=== PATIENT | female | born 1940 | race Hispanic/Latino ===

== ENCOUNTER 2016-09-25 08:00 | Inpatient (IN) | payer MEDICARE ==
[2016-09-22 10:07] VITALS: BMI 33.3
[2016-09-25] MEDS ORDERED: Propofol 10 mg/ml Inj (20 ML) ONE (08:55)
[2016-09-25] MEDS ORDERED: Lidocaine Hydrochloride 5 ML INJ ONE (08:55)
[2016-09-25] MEDS ORDERED: Rocuronium 10 mg/ml (5 ml) ONE ×2 (08:55→12:39)
[2016-09-25] MEDS ORDERED: Sevoflurane - Inhalation Anesthetic Liq (250 ml) ONE (08:57)
[2016-09-25] MEDS ORDERED: Meropenem 500 mg Inj IVPB ONE (09:00)
[2016-09-25] MEDS ORDERED: Vancomycin 500 mg Inj ONE (09:00)
[2016-09-25] MEDS ORDERED: Thrombin Topical 5,000 IU Spray Kit ONE (09:15)
[2016-09-25] MEDS ORDERED: Absorbable Gelatin Sponge Size 100 ONE (09:15)
[2016-09-25] MEDS ORDERED: ePHEDrine 50 mg/ml Inj ONE (13:02)
[2016-09-25] MEDS ORDERED: HYDROmorphone 0.5 mg/0.5 ml ISec ONE (16:04)
[2016-09-26] MEDS ORDERED: Artificial Tears Opht Soln OD PRN (03:53)
[2016-09-26] MEDS ORDERED: Albuterol-Ipratrop 3 mg / 0.5 (3 ml) UD INH PRN (03:53)
[2016-09-26] MEDS ORDERED: ACETAMINOPHEN 650 MG PO PRN (03:53)
[2016-09-26 07:45] LABS: ALB/GLOB RATIO 1.1 (1.0-2.1); BILIRUBIN,TOTAL 0.3 mg/dl (0.2-1.3); CALCIUM 9.2 mg/dL (8.4-10.2); POTASSIUM 4.2 MMOL/L (3.6-5.0); TOTAL PROTEIN 6.3 G/DL (6.3-8.2)
--- NOTE | 2016-09-26 08:30 | CP.PCM.PN ---
Subjective - Date & Time of Evaluation Date of Evaluation: 09/26/16 Time of Evaluation: 08:30 - Subjective Subjective: S- minimal popst op discomfort Objective - Vital Signs/Intake and Output Vital Signs (last 24 hours): Temp Pulse Resp BP Pulse Ox 99 F 92 H 17 119/64 95 09/26/16 07:46 09/26/16 07:46 09/26/16 07:46 09/26/16 07:46 09/26/16 07:46 - Medications Medications: Current Medications Acetaminophen (Tylenol 325mg Tab) 650 mg PO Q6 PRN PRN Reason: Fever >100.4 F Albuterol/Ipratropium (Duoneb 3 Mg/0.5 Mg (3 Ml) Ud) 3 ml INH RQ6 PRN PRN Reason: Shortness of Breath Amlodipine Besylate (Norvasc) 5 mg PO DAILY [facility] Artificial Tears (Artificial Tears) 2 drop OD Q2H PRN PRN Reason: Dry eyes Atorvastatin Calcium (Lipitor) 10 mg PO HS [facility] Clotrimazole (Lotrimin 1% Cream) 1 applic TOP BID [facility] Enoxaparin Sodium (Lovenox) 30 mg SC Q12 [facility] PRN Reason: Protocol Ferrous Sulfate (Feosol) 325 mg PO DAILY [facility] Meropenem 500 mg/ Sodium (Chloride) 100 mls @ 100 mls/hr IVPB Q12 [facility] Vancomycin HCl 500 mg/ Sodium (Chloride) 100 mls @ 100 mls/hr IVPB Q12 [facility] Lactulose (Enulose) 20 gm PO DAILY PRN PRN Reason: Constipation Oxycodone/Acetaminophen (Percocet 5/325 Mg Tab) 1 tab PO Q4 PRN PRN Reason: Pain, moderate (4-7) Stop: 09/29/16 03:54 Pantoprazole Sodium (Protonix Ec Tab) 40 mg PO DAILY [facility] Zolpidem Tartrate (Ambien) 5 mg PO HS PRN PRN Reason: Sleep - Labs Labs: 09/26/16 06:35 - Skin Additional comments: Objective R hip wound dressing intact stance/gait- defrred orthopedically stable Assessment and Plan - Assessment and Plan (Free Text) Assessment: A- s/p R THR P orthopedically stable physio- weigth bearing to tolerance with walker case discussed with DR Hall fromj ID point of view
--- NOTE | 2016-09-26 08:48 | RAD ---
PROCEDURE: Right Femur Radiographs. HISTORY: Postop. COMPARISON: 05/31/2014 right hip 08/08/2016 CT right lower extremity TECHNIQUE: AP and Lateral Radiographs of the right femur. Portable study 16:25. FINDINGS: FEMUR: Satisfactory postoperative status has a relates to revision of previous right SUSAN. SOFT TISSUES: Postop/surgical drains identified. OTHER FINDINGS: None. IMPRESSION: Satisfactory postoperative status.
[2016-09-26] MEDS ORDERED: FERROUS SULFATE PO SCH (09:00)
[2016-09-26] MEDS: Meropenem 500 MG in Sodium Chloride 0.9% 100 ML IVPB SCH ×2 (09:10→20:36)
[2016-09-26] MEDS: Pantoprazole 40 mg EC Tab PO SCH (09:11)
[2016-09-26] MEDS: Oxycodone/Acetaminophen 5/325 mg Tab PO PRN ×2 (09:15→18:17)
[2016-09-26 09:41] LABS: FLUID TYPE SYNOVIAL FLUID
[2016-09-26 10:08] LABS: SYNOVIAL FLUID TOTAL COUNT 100 (0-0)
[2016-09-26 10:15] LABS: BODY FLUID TYPE PERITONEAL/ASCITES
[2016-09-26 10:23] LABS: BF GROSS APPEARANCE BLOODY (CLEAR)
[2016-09-26 10:25] LABS: BODY FLUID TOTAL COUNT 100 (0-0)
--- NOTE | 2016-09-26 10:27 | CP.PCM.PN ---
Subjective - Date & Time of Evaluation Date of Evaluation: 09/26/16 Time of Evaluation: 10:30 - Subjective Subjective: Patient seen and examined bedside. Feeling well and in good spirits.pain is controleld with pain medication. Hemodynamically stable. Tmax 99.8 last 12 hours. No acute issues overnight Drain to right hip with minimal output Objective - Vital Signs/Intake and Output Vital Signs (last 24 hours): Temp Pulse Resp BP Pulse Ox 99 F 92 H 17 119/62 95 09/26/16 07:46 09/26/16 09:11 09/26/16 07:46 09/26/16 09:11 09/26/16 07:46 - Medications Medications: Current Medications Acetaminophen (Tylenol 325mg Tab) 650 mg PO Q6 PRN PRN Reason: Fever >100.4 F Albuterol/Ipratropium (Duoneb 3 Mg/0.5 Mg (3 Ml) Ud) 3 ml INH RQ6 PRN PRN Reason: Shortness of Breath Amlodipine Besylate (Norvasc) 5 mg PO DAILY [facility] Last Admin: 09/26/16 09:11 Dose: 5 mg Artificial Tears (Artificial Tears) 2 drop OD Q2H PRN PRN Reason: Dry eyes Atorvastatin Calcium (Lipitor) 10 mg PO HS [facility] Clotrimazole (Lotrimin 1% Cream) 1 applic TOP BID [facility] Last Admin: 09/26/16 09:09 Dose: 1 applic Enoxaparin Sodium (Lovenox) 30 mg SC Q12 [facility] PRN Reason: Protocol Ferrous Sulfate (Feosol) 325 mg PO DAILY [facility] Last Admin: 09/26/16 09:15 Dose: 325 mg Meropenem 500 mg/ Sodium (Chloride) 100 mls @ 100 mls/hr IVPB Q12 [facility] Last Admin: 09/26/16 09:10 Dose: 100 mls/hr Vancomycin HCl 500 mg/ Sodium (Chloride) 100 mls @ 100 mls/hr IVPB Q12 [facility] Lactulose (Enulose) 20 gm PO DAILY PRN PRN Reason: Constipation Oxycodone/Acetaminophen (Percocet 5/325 Mg Tab) 1 tab PO Q4 PRN PRN Reason: Pain, moderate (4-7) Stop: 09/29/16 03:54 Last Admin: 09/26/16 09:15 Dose: 1 tab Pantoprazole Sodium (Protonix Ec Tab) 40 mg PO DAILY [facility] Last Admin: 09/26/16 09:11 Dose: 40 mg Zolpidem Tartrate (Ambien) 5 mg PO HS PRN PRN Reason: Sleep - Labs Labs: 09/26/16 06:35 - Constitutional Appears: Well, Non-toxic, No Acute Distress - Head Exam Head Exam: ATRAUMATIC, NORMAL INSPECTION, NORMOCEPHALIC - Eye Exam Eye Exam: EOMI, Normal appearance, PERRL Pupil Exam: NORMAL ACCOMODATION - ENT Exam ENT Exam: Mucous Membranes Moist, Normal Exam - Neck Exam Neck Exam: Full ROM, Normal Inspection - Respiratory Exam Respiratory Exam: Clear to Ausculation Bilateral. absent: Rales, Rhonchi, Wheezes - Cardiovascular Exam Cardiovascular Exam: REGULAR RHYTHM, RRR, +S1, +S2. absent: JVD - GI/Abdominal Exam GI & Abdominal Exam: Soft, Normal Bowel Sounds. absent: Distended, Guarding, Tenderness, Rebound - Rectal Exam Rectal Exam: Deferred - Extremities Exam Extremities Exam: Normal Capillary Refill. absent: Calf Tenderness, Pedal Edema Additional comments: right hip Acquacell dressing dry and intact drain in place with minimal output pulse present - Back Exam Back Exam: NORMAL INSPECTION - Neurological Exam Neurological Exam: Alert, Awake, CN II-XII Intact, Oriented x3 - Psychiatric Exam Psychiatric exam: Normal Affect, Normal Mood - Skin Skin Exam: Dry, Intact, Normal Color, Warm Assessment and Plan - Assessment and Plan (Free Text) Assessment: 74 y/o female with PMHx significant for CAD/PAD, HTN, hyperlipidemia, diverticulosis, COPD, GERD, history of Right THR with dislocation and closed reduction was admitted via [facility] for revision of right hip. Today patient is POD # 1 and doing well. She denies any CP or SOB. Denies f/c/n/v/d.Pain is controlled. Drain to right hip with minimal output 1.Revision of THR post op day 1 Continue pain management Start PT with weight bearing as tolerated Dr. Alex following DVT prophylaxis with Lovenox 30 mg Sq q12 follow up cultures ID consulted. Continue Meropenem and Vancomycin Incentive spirometry 2. HTN (hypertension) BP controlled continue Norvasc 3. History of Anemia Continue Ferrous Sulfate 4. CAD (coronary artery disease) symptomatic Continue Lipitor plavix on hold for surgery cardiology clearance in chart 5. COPD (chronic obstructive pulmonary disease) no wheezing or SOB Duoneb q 4hrs prn for SOB 6.DVT prophylaxis continue Lovenox SCD
[2016-09-26 11:40] LABS: HEMATOCRIT 30.3 % (34.0-47.0); MEAN CELL VOLUME 87.7 fl (81.0-99.0); MEAN CORPUSCULAR HEMOGLOBIN 28.1 pg (27.0-31.0); WHITE BLOOD COUNT 13.4 K/uL (4.8-10.8)
[2016-09-26] MEDS: Enoxaparin 30 mg Syringe SC SCH ×2 (11:51→21:27)
[2016-09-26 18:49] LABS: PROCALCITONIN SERUM 0.09 NG/ML (0.19-0.49)
[2016-09-27 08:33] VITALS: RESP 20
[2016-09-27] MEDS: Enoxaparin 30 mg Syringe SC SCH (09:03)
[2016-09-27] MEDS: Meropenem 500 MG in Sodium Chloride 0.9% 100 ML IVPB SCH (09:04)
[2016-09-27] MEDS: Pantoprazole 40 mg EC Tab PO SCH (09:04)
--- NOTE | 2016-09-27 10:52 | CP.PCM.DIS ---
Provider - Provider Date of Admission: 09/26/16 03:01 Attending physician: Eulalio Beltrán MD Consults: Orthopedics Dr. Tolbert ID Dr. Koch Time Spent in preparation of Discharge (in minutes): 40 Hospital Course - Lab Results Lab Results: Micro Results 09/26/16 Unknown Hip - Right Gram Stain - Final 09/26/16 Unknown Hip - Right Gram Stain - Final 09/26/16 Unknown Hip - Right Gram Stain - Final 09/26/16 Unknown Hip - Right Gram Stain - Final 09/26/16 Unknown Hip - Right Gram Stain - Final 09/26/16 Unknown Hip - Right Gram Stain - Final 09/26/16 Unknown Hip - Right Gram Stain - Final 09/25/16 Unknown Other: Please Indicate Gram Stain - Final 09/26/16 Unknown Body Fluid - Hip-Right Gram Stain - Final Most Recent Lab Values WBC 13.4 K/uL (4.8-10.8) H 09/26/16 11:36 RBC 3.45 Mil/uL (3.80-5.20) L 09/26/16 11:36 Hgb 9.7 g/dL (12.0-16.0) L D 09/26/16 11:36 Hct 30.3 % (34.0-47.0) L 09/26/16 11:36 MCV 87.7 fl (81.0-99.0) 09/26/16 11:36 MCH 28.1 pg (27.0-31.0) 09/26/16 11:36 MCHC 32.0 g/dL (33.0-37.0) L 09/26/16 11:36 RDW 15.0 % (11.5-14.5) H 09/26/16 11:36 Plt Count 341 K/uL (130-400) D 09/26/16 11:36 ESR 73 mm/hr (0-30) H 09/26/16 06:35 Sodium 140 mmol/l (132-148) 09/26/16 06:35 Potassium 4.2 MMOL/L (3.6-5.0) 09/26/16 06:35 Chloride 105 mmol/L (98-107) 09/26/16 06:35 Carbon Dioxide 26 mmol/L (22-30) 09/26/16 06:35 Anion Gap 14 (10-20) 09/26/16 06:35 BUN 25 mg/dl (7-17) H 09/26/16 06:35 Creatinine 1.2 mg/dL (0.7-1.2) 09/26/16 06:35 Est GFR ( Amer) 53 09/26/16 06:35 Est GFR (Non-Af Amer) 44 09/26/16 06:35 Random Glucose 117 mg/dL (65-105) H 09/26/16 06:35 Calcium 9.2 mg/dL (8.4-10.2) 09/26/16 06:35 Total Bilirubin 0.3 mg/dl (0.2-1.3) 09/26/16 06:35 AST 30 U/L (14-36) 09/26/16 06:35 ALT 17 U/L (9-52) 09/26/16 06:35 Alkaline Phosphatase 64 U/L (38-126) 09/26/16 06:35 Total Protein 6.3 G/DL (6.3-8.2) 09/26/16 06:35 Albumin 3.2 g/dL (3.5-5.0) L D 09/26/16 06:35 Globulin 3.0 gm/dL (2.2-3.9) 09/26/16 06:35 Albumin/Globulin Ratio 1.1 (1.0-2.1) 09/26/16 06:35 Procalcitonin 0.09 NG/ML (0.19-0.49) L 09/26/16 06:35 Fluid Type Synovial fluid 09/26/16 Unknown Fluid Source Peritoneal/ascites 09/25/16 Unknown Fluid Appearance Bloody (CLEAR) 09/25/16 Unknown Fluid WBC 252.0 /mm3 (0.0-300.0) 09/25/16 Unknown Fluid RBC 78579.0 /mm3 (0.0-0.0) H 09/25/16 Unknown Fluid Tot Cell Count 100 (0-0) H 09/25/16 Unknown Fluid Neutrophils 80.0 % (0-0) H 09/25/16 Unknown Fluid Lymphocytes 9.0 % (0-0) H 09/25/16 Unknown Fld Monocyte/Macrophag 10 % (0-0) H 09/25/16 Unknown Synovial WBC 5544.0 /mm3 (0.0-150.0) H 09/26/16 Unknown Synovial RBC 24234.0 /mm3 (0.0-0.0) H 09/26/16 Unknown Synovial Neutrophils 93.0 % (0-0) H 09/26/16 Unknown Synovial Lymphocytes 5.0 % (0-0) H 09/26/16 Unknown Synov Monos/Macrophage 2 % (0-0) H 09/26/16 Unknown Vancomycin Trough 11.9 ug/mL (5.0-10.0) H 09/27/16 05:30 Teichoic Acid Antibody TNP 09/26/16 06:35 Anti-Staphylolysin O Negative (NEGATIVE) 09/26/16 06:35 Blood Type O NEGATIVE 09/25/16 09:10 Antibody Screen Positive 09/25/16 09:10 Antibody Identification Anti C Anti D Anti E Anti K 09/25/16 09:10 Antibody Identification Anti C Anti D Anti E Anti K 09/25/16 09:10 Antibody Identification Anti C Anti D Anti E Anti K 09/25/16 09:10 Antibody Identification Anti C Anti D Anti E Anti K 09/25/16 09:10 Antigen Identification C Antigen - NEGATIVE E Antigen - NEGATIVE K Antigen - NEGATIVE 09/25/16 09:10 Antigen Identification C Antigen - NEGATIVE E Antigen - NEGATIVE K Antigen - NEGATIVE 09/25/16 09:10 Antigen Identification C Antigen - NEGATIVE E Antigen - NEGATIVE K Antigen - NEGATIVE 09/25/16 09:10 Crossmatch See Detail 09/25/16 09:10 BBK History Checked Patient has bt 09/25/16 09:10 - Hospital Course Hospital Course: 76 year old female (PMHx CAD, PAD, HTN, HLD, Diverticulosis, COPD, GERD, Right THR) was admitted to [facility] on 09/26/16 for rivision of Right THR that occurred on 09/26/16. She is stable for discharge to TCU at [facility] for continued care and PT/OT NO Chest Pain, NO palpitations, NO SOB/Cough/Wheezing, NO dyshpagia/odynophagia , NO abdominal pain, NO n/v/d, (Has NOT moved bowels since her admission), NO burning/pain with urination, NO lightheadedness/dizziness, NO new changes in vision/eye pain, NO new changes in hearing/ear pain, NO paresthesias, NO edema Exam: HEENT: NCA, EOMI, PERRLA, NO pharyngeal erythema/exudate, NO thyromegaly, NO lymphadenopathy Cardio: NS1 and NS2, NO M/R/G Respiratory: CTA B/L NO R/R?W GI: BSx4, Soft, NT, NO HSM, NO guarding/rebound tenderness, ND Ext: NO Edema, Capillary Refill is 2 seconds, Pulses are strong and equal, NO loss of sensation, NO cyanosis Neuro: CN II throug XII are grossly intact Skin: Stage II Sacral Ulcer inferior aspect, Moles Right Lateral Nose and Left Lateral Neck Assessment and Plan: 1). Right THR Revision POD #2 PT weight bearing as tolerated Follow up finalization of Wound Cultures Lovenox 30 mg SQ Q12H Meropenem 500 mg IV Q12H Vancomycin 500 mg IV Q12H Oxycodone 5/325 mg 1 tab PO Q4H PRN Moderate Pain Orthopedics Dr. Tolbert Infectious Disease Dr. Koch 2). HTN Norvasc 5 mg PO 1x/day 3). HLD Lipitor 10 mg PO QHS 4). Sacral Stage II Ulcer/Moles on Right Lateral Nose and Left Lateral Neck Patient states that she the Sacral Ulcer is chronic and that she has been followed by wound care at this institution in the past: SHE DOES NOT WANT TREATMENT FOR THIS WHILE SHE IS HERE. She would like for us to leave this alone despite explaining to her my concerns for infection without treatment. She is also aware of the moles (in the aforementioned areas) and again does not want these addressed 5). Prophylacitic Measures Tylenol 650 mg PO Q6H PRN F>100.4 Duoneb Q6H PRN SOB Artificial Tears 2 drops Both Eyes Q12H Lotrimin 1 % Cream Topical 2x/day Protonix 40 mg PO 1x/day Ferrous Sulfate 325 mg PO 1x/day Lactulose 20 gm PO 1x/day Ambien 5 mg PO QHS Jet Garza D.O. Discharge Exam - Head Exam Head Exam: ATRAUMATIC, NORMAL INSPECTION, NORMOCEPHALIC Discharge Plan - Follow Up Plan Condition: GOOD Disposition: HOME/ ROUTINE Instructions: Hypertension (DC), Hypertension (GEN)
--- NOTE | 2016-09-27 10:57 | CP.PCM.PN ---
Subjective - Date & Time of Evaluation Date of Evaluation: 09/27/16 Time of Evaluation: 10:55 - Subjective Subjective: systemic- wnl Musculoskekletal stance/gait- defrred wound benign orthopedically stable Objective - Vital Signs/Intake and Output Vital Signs (last 24 hours): Temp Pulse Resp BP Pulse Ox 98.8 F 88 20 123/61 92 L 09/27/16 08:33 09/27/16 09:03 09/27/16 08:33 09/27/16 09:03 09/27/16 08:33 Intake and Output: 09/27/16 09/27/16 06:59 18:59 Output Total 60 Balance -60 - Medications Medications: Current Medications Acetaminophen (Tylenol 325mg Tab) 650 mg PO Q6 PRN PRN Reason: Fever >100.4 F Albuterol/Ipratropium (Duoneb 3 Mg/0.5 Mg (3 Ml) Ud) 3 ml INH RQ6 PRN PRN Reason: Shortness of Breath Amlodipine Besylate (Norvasc) 5 mg PO DAILY [facility] Last Admin: 09/27/16 09:03 Dose: 5 mg Artificial Tears (Artificial Tears) 2 drop OD Q2H PRN PRN Reason: Dry eyes Atorvastatin Calcium (Lipitor) 10 mg PO HS [facility] Last Admin: 09/26/16 21:33 Dose: 10 mg Clotrimazole (Lotrimin 1% Cream) 1 applic TOP BID [facility] Last Admin: 09/27/16 09:03 Dose: 1 applic Enoxaparin Sodium (Lovenox) 30 mg SC Q12 [facility] PRN Reason: Protocol Last Admin: 09/27/16 09:03 Dose: 30 mg Ferrous Sulfate (Feosol) 325 mg PO DAILY [facility] Last Admin: 09/27/16 09:02 Dose: 325 mg Meropenem 500 mg/ Sodium (Chloride) 100 mls @ 100 mls/hr IVPB Q12 [facility] Last Admin: 09/27/16 09:04 Dose: 100 mls/hr Vancomycin HCl 500 mg/ Sodium (Chloride) 100 mls @ 100 mls/hr IVPB Q12 [facility] Last Admin: 09/26/16 21:32 Dose: 100 mls/hr Lactulose (Enulose) 20 gm PO DAILY PRN PRN Reason: Constipation Oxycodone/Acetaminophen (Percocet 5/325 Mg Tab) 1 tab PO Q4 PRN PRN Reason: Pain, moderate (4-7) Stop: 09/29/16 03:54 Last Admin: 09/26/16 18:17 Dose: 1 tab Pantoprazole Sodium (Protonix Ec Tab) 40 mg PO DAILY [facility] Last Admin: 09/27/16 09:04 Dose: 40 mg Zolpidem Tartrate (Ambien) 5 mg PO HS PRN PRN Reason: Sleep - Labs Labs: 09/26/16 11:36 09/26/16 06:35 Assessment and Plan - Assessment and Plan (Free Text) Assessment: A- s/p Revision R THR orthopedically stablle for rehabb transer postn op Xrays reveal acceptable posotion of construct
[2016-09-27] MEDS: Oxycodone/Acetaminophen 5/325 mg Tab PO PRN (12:09)
[2016-09-27 16:03] VITALS: BP 127/62; PULSE 80; TEMP 98.3; O2SAT 94
--- NOTE | 2016-09-27 18:49 | CP.PCM.PN ---
Subjective - Date & Time of Evaluation Date of Evaluation: 09/27/16 Time of Evaluation: 16:45 - Subjective Subjective: ID NOTE PATIENT INITIALLY SEEN ON 09/25/16 WHEN COMPUTERS WERE DOWN STARTED ON VANCOMYCIN/ MEROPENEM WILL NEED 4 TO 6 WEEKS Objective - Vital Signs/Intake and Output Vital Signs (last 24 hours): Temp Pulse Resp BP Pulse Ox 98.3 F 80 20 127/62 94 L 09/27/16 16:02 09/27/16 16:02 09/27/16 16:02 09/27/16 16:02 09/27/16 16:02 Intake and Output: 09/27/16 09/27/16 06:59 18:59 Output Total 60 Balance -60 - Medications Medications: Current Medications Acetaminophen (Tylenol 325mg Tab) 650 mg PO Q6 PRN PRN Reason: Fever >100.4 F Albuterol/Ipratropium (Duoneb 3 Mg/0.5 Mg (3 Ml) Ud) 3 ml INH RQ6 PRN PRN Reason: Shortness of Breath Amlodipine Besylate (Norvasc) 5 mg PO DAILY [facility] Last Admin: 09/27/16 09:03 Dose: 5 mg Artificial Tears (Artificial Tears) 2 drop OD Q2H PRN PRN Reason: Dry eyes Atorvastatin Calcium (Lipitor) 10 mg PO HS [facility] Last Admin: 09/26/16 21:33 Dose: 10 mg Clotrimazole (Lotrimin 1% Cream) 1 applic TOP BID [facility] Last Admin: 09/27/16 16:43 Dose: 1 applic Enoxaparin Sodium (Lovenox) 30 mg SC Q12 [facility] PRN Reason: Protocol Last Admin: 09/27/16 09:03 Dose: 30 mg Ferrous Sulfate (Feosol) 325 mg PO DAILY [facility] Last Admin: 09/27/16 09:02 Dose: 325 mg Meropenem 500 mg/ Sodium (Chloride) 100 mls @ 100 mls/hr IVPB Q12 [facility] Last Admin: 09/27/16 09:04 Dose: 100 mls/hr Vancomycin HCl 500 mg/ Sodium (Chloride) 100 mls @ 100 mls/hr IVPB Q12 [facility] Last Admin: 09/27/16 11:34 Dose: 100 mls/hr Lactulose (Enulose) 20 gm PO DAILY PRN PRN Reason: Constipation Oxycodone/Acetaminophen (Percocet 5/325 Mg Tab) 1 tab PO Q4 PRN PRN Reason: Pain, moderate (4-7) Stop: 09/29/16 03:54 Last Admin: 09/27/16 12:09 Dose: 1 tab Pantoprazole Sodium (Protonix Ec Tab) 40 mg PO DAILY [facility] Last Admin: 09/27/16 09:04 Dose: 40 mg Zolpidem Tartrate (Ambien) 5 mg PO HS PRN PRN Reason: Sleep - Labs Labs: 09/26/16 11:36 09/26/16 06:35
--- NOTE | 2016-09-29 07:34 | OP ---
PROCEDURE DATE: 09/25/2016 PREOPERATIVE DIAGNOSIS: Painful right total hip replacement, rule out deep sepsis. POSTOPERATIVE DIAGNOSIS: Painful right total hip replacement, rule out deep sepsis. PROCEDURES: 1. Primary revision, total hip replacement arthroplasty, right, 2 components. 2. Removal of 2 total hip components. 3. Arthrotomy of the hip, extensive synovectomy. 4. Arthrotomy, right hip incision and drainage. SURGEON: Oscar Alex MD. LEAD COOK: Aylin Miranda, Certified Registered Sorting Machine Attendant. SECOND MAINTENANCE EQUIPMENT OPERATOR: Kenny Ceballos. COMPLICATIONS: No complications. DRAINS: One Hemovac drain. OPERATIVE INDICATION: The patient is a woman who underwent a primary total hip replacement in 2014 w ith recurrent dislocation. The patient underwent revision at that point in time for recurrent disloc ation with revision of acetabular component. The patient was doing well. The patient did not return for followup to my office, citing various reasons. The patient presented approximately 10 days ago with some drainage. The patient had been treated unsuccessfully at wound management by Dr. Alford,. The patient at that point in time was encouraged for emergency admission. She refuses. Pros, cons, risks and benefits for arthrotomy and revision are discussed at length. Authorization is obtained. The patient finally consents to coming into hospital. The patient presents with her son, Lance. Aft er having obtained informed consent, after thoroughly discussing the pros, cons, risks and benefits o f surgical approach, possibility of revision, possibility of component removal, possibility of introd uction of antibiotic impregnated spacer, possibility of introduction of antibiotic impregnated beads discussed. The off label use of the antibiotic impregnated beads is discussed at length with the pat iecoco and her son, Lance. Again, the possibility of mechanical failure, infection, thromboembolic dis ease, dislocation, nerve injury, secondary and even tertiary surgery is discussed. The possibility o f IV antibiotics is discussed. OPERATIVE PROCEDURE: The patient wishes the surgery be accomplished at this point in time after hernan tafoya for approximately 9 months. After having obtained informed consent in the above fashion, after having identified side, site and procedure and a critical pause/timeout, after the satisfactory induc tion of the anesthetic, the patient identified as Dottie Vasquez is placed in the direct lateral decubitus position with the right side up. The right lower extremity is prepped and free draped in t he usual fashion for lower extremity surgery. The initial incision is extended 2 fingerbreadths prox imally, 2 fingerbreadths distally. An ellipse of skin and subcutaneous tissue is excised. Superfici al cultures are obtained. Stat Gram stain, number of white cells per high power field, stat Gram sta in is sent. The skin incision is carried down through the skin and subcutaneous tissue. The Charnle y retractor is placed. The fascia wei is divided. The gluteus tatiana tendon insertion into the po sterior aspect of the femur is released. The gluteus tatiana decussation is released as well. At th is point in time, deep cultures are obtained. Stat Gram stain with number of white cells per high po wer field is obtained. Gram stain show sequentially no organisms and anywhere between 8 to 15 white cells per high power field. The arthrotomy is accomplished at this point in time with extensive syno vectomy and excision of scar. Arthrotomy, synovectomy, extensive excision of scar is accomplished. The posterior capsule is elevated with progressive internal rotation of the femur. This is tagged wi th stay suture. The gluteus tataina tendon insertion into the posterior aspect of the femur is relea sed. This having been accomplished, the hip is dislocated and again, further debridement of heteroto pic ossification is accomplished. Partial ostectomy of the heterotopic ossification is accomplished. The hip is dislocated and again, this fluid is cultured and stat Gram stain , number of white cells per high power field is sent. This having been accomplished, the tripolar MDM insert Prosper is rem kera. The head is removed. The stem is found to be exceptionally well fixed. There is no evidence of loosening of either the cup or the femoral stem. The tripolar construct had been employed. Using a bur, the margins of the acetabulum are identified and defined, taking great care not to injure cup . This having been accomplished, the metal insert of the acetabular shell is identified and is remov ed. The cold weld is removed using the curved osteotome. This having been accomplished, the inner m etal bearing is removed from the shell. The shell is found to be intact. There is no evidence of lo osening and on that basis, no real evidence of deep sepsis. The wound is thoroughly irrigated at thi s point in time with 3 L of antibiotic impregnated solution. This having been accomplished, the trip olar is converted to a total hip replacement. The tripolar components are removed. The femoral head is removed. Polyethylene and the inner shell of the acetabular component is removed. The complexit y of this exercise really deserves a complexity modifier. This having been accomplished, both in ter ms of the preoperative preparation, intraoperative difficulty in removing the inner bearing from the shell, the 10-degree hooded polyethylene insert for the 36 mm head is impacted in the appropriate ant eversion with the frod in the appropriate place. Trialing is accomplished with +10 femoral head 36 m m. The hip is reduced and found to be stable in all planes. This having been accomplished, the meta l +10, 36 mm head is impacted. The hip is reduced and found to be stable in all planes. The posteri or capsule is reintroduced through drill holes in the posterior aspect of the trochanter. The gut cleaner ior capsule is repaired using interrupted FiberWire suture. The wound again is thoroughly irrigated. Thorough debridement is accomplished. At this point in time, vancomycin impregnated calcium sulfat e pellets are placed in the superficial tissues because of the concern for superficial infection. Th e wound is thoroughly irrigated. Closure is in layers with #2 Quill followed by Vicryl, 0 Quill and samaria to skin over an 1/8 inch suction Hemovac drain. Braden Daigle compression dressing, Aquacel d ressing is applied. Postoperative x-rays reveal acceptable position of the construct. Oscar Alex MD cc: [id number] TT: 09/26/2016 09:56:39 tn
== END 2016-09-27 21:00 | DRG 468 ==
LOC: H.OPSURG 08:00 → H.MEDSURG1 09-26 01:48 → H.OPSURG 09-26 02:57 → H.MEDSURG1 09-26 03:01
PROC: 0SP90JZ Removal of Synthetic Substitute from Right Hip Joint, Open Approach (ICD-10-PCS; 2016-09-25)
PROC: 0SR902A Replacement of Right Hip Joint with Metal on Polyethylene Synthetic Substitute, Uncemented, Open Approach (ICD-10-PCS; principal; 2016-09-25 11:15)
DX: T84.84XA Pain due to internal orthopedic prosthetic devices, implants and grafts, initial encounter (principal); T84.51XA Infection and inflammatory reaction due to internal right hip prosthesis, initial encounter; B95.1 Streptococcus, group B, as the cause of diseases classified elsewhere; L89.152 Pressure ulcer of sacral region, stage 2; Z96.641 Presence of right artificial hip joint; J44.9 Chronic obstructive pulmonary disease, unspecified; D64.9 Anemia, unspecified; G89.28 Other chronic postprocedural pain; I10 Essential (primary) hypertension; I25.10 Atherosclerotic heart disease of native coronary artery without angina pectoris; E78.5 Hyperlipidemia, unspecified; K21.9 Gastro-esophageal reflux disease without esophagitis; I73.9 Peripheral vascular disease, unspecified; K57.90 Diverticulosis of intestine, part unspecified, without perforation or abscess without bleeding; Z88.3 Allergy status to other anti-infective agents; Z88.2 Allergy status to sulfonamides; Z87.891 Personal history of nicotine dependence

== ENCOUNTER 2016-09-27 21:30 | Inpatient (IN) | payer MEDICARE ==
[2016-09-27 23:18] VITALS: BMI 23.1
[2016-09-28] MEDS ORDERED: Artificial Tears Opht Soln OD PRN (00:01)
[2016-09-28] MEDS ORDERED: Albuterol-Ipratrop 3 mg / 0.5 (3 ml) UD INH PRN (00:01)
[2016-09-28] MEDS ORDERED: Oxycodone/Acetaminophen 5/325 mg Tab PO PRN (00:01)
[2016-09-28] MEDS ORDERED: Meropenem 500 MG in Sodium Chloride 0.9% 100 ML IVPB SCH (05:00)
--- NOTE | 2016-09-28 08:38 | CP.PCM.HP ---
History of Present Illness - History of Present Illness History of Present Illness: Hospitalist Admission H&P (Patient was seen and examined at 8:15 PM 09/28/16 712 -1) 76 year old female (PMHx CAD, PAD, HTN, HLD, Diverticulosis, COPD, GERD, Right THR) was admitted to [facility] on 09/26/16 for revision of Right THR that occurred on 09/26/16. She was discharged to TCU at [facility] for continued care and PT/OT on . NO Chest Pain, NO palpitations, NO SOB/Cough/Wheezing, NO dyshpagia/odynophagia , NO abdominal pain, NO n/v/d, (Has NOT moved bowels since her admission), NO burning/pain with urination, NO lightheadedness/dizziness, NO new changes in vision/eye pain, NO new changes in hearing/ear pain, NO paresthesias, NO edema PMHx: HF, HLD, HTN, COPD, Anemia, RA, Colitis, GERD, Bleeding Ulcer, Sacral Ulcer PSHx: Appendectomy, Cardiac Cath with Stent, Left Leg Stent, Right THR w/ revision ALL: Bacitracine,Neomycin, Polymyxin B, Sulfa Medications: Please see individual Assessment and Plan below Social Hx: (+) Tobacco, NO Alcohol, NO illicit drugs Exam: HEENT: NCA, EOMI, PERRLA, NO pharyngeal erythema/exudate, NO thyromegaly, NO cervical/supraclavicular/submandibular lymphadenopathy Cardio: NS1 and NS2, NO M/R/G Respiratory: CTA B/L NO R/R?W GI: BSx4, Soft, NT, NO HSM, NO guarding/rebound tenderness, ND Ext: NO Edema, Capillary Refill is 2 seconds, Pulses are strong and equal, NO loss of sensation, NO cyanosis Neuro: CN II throug XII are grossly intact Skin: Stage II Sacral Ulcer inferior aspect, Moles Right Lateral Nose and Left Lateral Neck Assessment and Plan: 1). Right THR Revision POD #3 PT weight bearing as tolerated Follow up finalization of Wound Cultures Lovenox 30 mg SC Q12H Meropenem 500 mg IV Q12H Vancomycin 500 mg IV Q12H Oxycodone 5/325 mg 1 tab PO Q4H PRN Moderate Pain Orthopedics Dr. Tolbert Infectious Disease Dr. Koch 2). HTN Norvasc 5 mg PO 1x/day 3). HLD Lipitor 10 mg PO QHS 4). Sacral Stage II Ulcer/Moles on Right Lateral Nose and Left Lateral Neck Patient states that the Sacral Ulcer is chronic and that she has been followed by wound care at this institution in the past: SHE DOES NOT WANT TREATMENT FOR THIS WHILE SHE IS HERE. She would like for us to leave this alone despite explaining to her my concerns for infection without treatment. She is also aware of the moles (in the aforementioned areas) and again does not want these addressed 5). Prophylacitic Measures Tylenol 650 mg PO Q6H PRN F>100.4 Duoneb Q6H PRN SOB Artificial Tears 2 drops Both Eyes Q12H Lotrimin 1 % Cream Topical 2x/day Protonix 40 mg PO 1x/day Lovenox 30 mg SC Q12H Ferrous Sulfate 325 mg PO 1x/day Lactulose 20 gm PO 1x/day Ambien 5 mg PO QHS Jet Garza D.O. Present on Admission - Present on Admission Any Indicators Present on Admission: Yes History of DVT/PE: No History of Uncontrolled Diabetes: No Urinary Catheter: No Decubitus Ulcer Present: Yes Review of Systems - Review of Systems Review of Systems: See Above Past Patient History - Infectious Disease Hx of Infectious Diseases: None - Tetanus Immunizations Tetanus Immunization: Unknown - Past Medical History & Family History Past Medical History?: Yes Pertinent Family History: See Above - Past Social History Smoking Status: Heavy Smoker > 10 Cigarettes Daily - CARDIAC Hx Cardiac Disorders: Yes Hx Hypercholesterolemia: Yes Hx Hypertension: Yes Hx Peripheral Vascular Disease: Yes Other/Comment: CAD - PULMONARY Hx Respiratory Disorders: Yes Hx Chronic Obstructive Pulmonary Disease (COPD): Yes - NEUROLOGICAL Hx Neurological Disorder: No - HEENT Hx HEENT Problems: No - RENAL Hx Chronic Kidney Disease: No - ENDOCRINE/METABOLIC Hx Endocrine Disorders: No - HEMATOLOGICAL/ONCOLOGICAL Hx Blood Disorders: Yes Hx Anemia: Yes Hx Blood Transfusions: Yes Hx Blood Transfusion Reaction: No - INTEGUMENTARY Hx Dermatological Problems: Yes - MUSCULOSKELETAL/RHEUMATOLOGICAL Hx Falls: Yes - GASTROINTESTINAL Hx Gastrointestinal Disorders: Yes Hx Gastroesophageal Reflux: Yes Other/Comment: HX OF G I BLEED - GENITOURINARY/GYNECOLOGICAL Hx Genitourinary Disorders: No - PSYCHIATRIC Hx Substance Use: No - SURGICAL HISTORY Hx Surgeries: Yes Hx Cardiac Catheterization: Yes Hx Coronary Stent: Yes (2013) Hx Joint Replacement: Yes (THR RIGHT 2014) Other/Comment: 09/25/16 i and d revision rthr. STOMACH SX - ANESTHESIA Hx Anesthesia: Yes Hx Anesthesia Reactions: No Hx Malignant Hyperthermia: No Meds Allergies/Adverse Reactions: Allergies Allergy/AdvReac Type Severity Reaction Status Date / Time bacitracin Allergy Unknown ANAPHYLAXIS Verified 07/04/16 15:15 neomycin Allergy Unknown ANAPHYLAXIS Verified 07/04/16 15:19 polymyxin B Allergy Unknown ANAPHYLAXIS Verified 07/04/16 15:21 Sulfa (Sulfonamide Allergy Unknown ANAPHYLAXIS Verified 07/04/16 15:20 Antibiotics) Physical Exam - Constitutional Additional comments: See Above Results - Vital Signs Recent Vital Signs: Last Vital Signs Temp 99.5 F 09/28/16 08:07 Pulse 83 09/28/16 08:07 Resp 20 09/28/16 08:07 BP 119/57 L 09/28/16 08:07 Pulse Ox 94 L 09/28/16 08:07 Assessment & Plan - Assessment and Plan (Free Text) Assessment: See Above Decision To Admit - Pt Status Changed To: Hospital Disposition Of: Inpatient - Admit Certification Admit to Inpatient:: After my assessment, the patient will require hospitalization for at least two midnights. This is because of the severity of symptoms shown, intensity of services needed, and/or the medical risk in this patient being treated as an outpatient. - . Bed Request Type: Transitional Care Unit Admitting Physician: Jet Garza
[2016-09-28] MEDS: Enoxaparin 30 mg Syringe SC SCH ×2 (09:05→21:38)
[2016-09-28] MEDS: Pantoprazole 40 mg EC Tab PO SCH (09:05)
--- NOTE | 2016-09-28 16:35 | CP.PCM.PN ---
Subjective - Date & Time of Evaluation Date of Evaluation: 09/28/16 Time of Evaluation: 16:25 - Subjective Subjective: ID NOTE PATIENT HAS BEEN PLACED ON MEROPENEM/VANCOMYCIN ON 2 OTHER TIMES IN THIS HOSPITAL STAY .THURSDAY(09/25/16) AND YESDAY(09/27/16) HAVE ONCE AGAIN ORDERED NEEDS 6 WEEKS OF IV ANTIBIOTIC RX PER PREVIOUS NOTES Objective - Vital Signs/Intake and Output Vital Signs (last 24 hours): Temp Pulse Resp BP Pulse Ox 99.5 F 83 20 119/57 L 94 L 09/28/16 08:07 09/28/16 09:05 09/28/16 08:07 09/28/16 09:05 09/28/16 08:07 - Medications Medications: Current Medications Acetaminophen (Tylenol 325mg Tab) 650 mg PO Q6 PRN PRN Reason: Fever >100.4 F Albuterol/Ipratropium (Duoneb 3 Mg/0.5 Mg (3 Ml) Ud) 3 ml INH RQ6 PRN PRN Reason: Shortness of Breath Amlodipine Besylate (Norvasc) 5 mg PO DAILY [facility] Last Admin: 09/28/16 09:05 Dose: 5 mg Artificial Tears (Artificial Tears) 2 drop OD Q2H PRN PRN Reason: Dry eyes Atorvastatin Calcium (Lipitor) 10 mg PO HS [facility] Clotrimazole (Lotrimin 1% Cream) 1 applic TOP BID [facility] Last Admin: 09/28/16 09:06 Dose: 1 unit Enoxaparin Sodium (Lovenox) 30 mg SC Q12 [facility] PRN Reason: Protocol Last Admin: 09/28/16 09:05 Dose: 30 mg Ferrous Sulfate (Feosol) 325 mg PO DAILY [facility] Last Admin: 09/28/16 09:12 Dose: 325 mg Meropenem 500 mg/ Sodium (Chloride) 100 mls @ 100 mls/hr IVPB Q12@0500,1700 [facility] Last Admin: 09/28/16 05:37 Dose: 100 mls/hr Vancomycin HCl 500 mg/ Sodium (Chloride) 100 mls @ 100 mls/hr IVPB Q12@0500, 1700 [facility] Last Admin: 09/28/16 06:46 Dose: 100 mls/hr Meropenem 500 mg/ Sodium (Chloride) 100 mls @ 100 mls/hr IVPB Q12 [facility] Lactulose (Enulose) 20 gm PO DAILY PRN PRN Reason: Constipation Oxycodone/Acetaminophen (Percocet 5/325 Mg Tab) 1 tab PO Q4 PRN PRN Reason: Pain, moderate (4-7) Stop: 10/01/16 00:02 Pantoprazole Sodium (Protonix Ec Tab) 40 mg PO DAILY [facility] Last Admin: 09/28/16 09:05 Dose: 40 mg Zolpidem Tartrate (Ambien) 5 mg PO HS PRN PRN Reason: Sleep
[2016-09-28] MEDS: Meropenem 500 MG in Sodium Chloride 0.9% 100 ML IVPB SCH (18:00)
[2016-09-29] MEDS: Meropenem 500 MG in Sodium Chloride 0.9% 100 ML IVPB SCH ×2 (05:09→17:15)
[2016-09-29 07:18] LABS: ALB/GLOB RATIO 0.9 (1.0-2.1); BILIRUBIN,TOTAL 0.4 mg/dl (0.2-1.3); CALCIUM 9.5 mg/dL (8.4-10.2); POTASSIUM 3.6 MMOL/L (3.6-5.0); TOTAL PROTEIN 6.7 G/DL (6.3-8.2)
[2016-09-29] MEDS: Pantoprazole 40 mg EC Tab PO SCH (09:29)
[2016-09-29] MEDS: Enoxaparin 30 mg Syringe SC SCH ×2 (09:29→21:34)
[2016-09-29 10:54] LABS: BASO % 0.2 % (0.0-2.0); EOS # 0.6 K/uL (0.0-0.7); EOS % 4.4 % (0.0-4.0); HEMATOCRIT 29.1 % (34.0-47.0); LYMPH # 1.3 K/uL (1.0-4.3); LYMPH % 9.2 % (20.0-40.0); MEAN CELL VOLUME 87.1 fl (81.0-99.0); MEAN CORPUSCULAR HEMOGLOBIN 28.7 pg (27.0-31.0); MEAN PLATELET VOLUME 8.6 fl (7.2-11.7); MONO # 2.1 K/uL (0.0-0.8); MONO % 14.9 % (0.0-10.0); NEUT % 71.3 % (50.0-75.0); NRBC % 0.1 % (0.0-0.0); PLATELET COUNT 371 K/uL (130-400); RED CELL DISTRIBUTION WIDTH 15.1 % (11.5-14.5); WHITE BLOOD COUNT 14.1 K/uL (4.8-10.8)
[2016-09-29 12:22] LABS: EOSINOPHIL 2 % (0-7); NEUTROPHIL 75 % (42-75); REACTIVE LYMPHOCYTES 1 % (0-0); TOTAL CELLS COUNTED 100
[2016-09-29 12:25] LABS: PLATELET CLUMPS PRESENT
[2016-09-30] MEDS: Meropenem 500 MG in Sodium Chloride 0.9% 100 ML IVPB SCH ×2 (04:53→16:22)
[2016-09-30] MEDS: Enoxaparin 30 mg Syringe SC SCH ×2 (09:23→21:28)
[2016-09-30] MEDS: Pantoprazole 40 mg EC Tab PO SCH (09:24)
--- NOTE | 2016-09-30 12:58 | CP.PCM.CON ---
History of Present Illness - History of Present Illness History of Present Illness: patient is a 76 year old female with right hip replacement now for Pt, Ot rec therapy with history of CAD, HTN,RA Review of Systems - Constitutional Constitutional: Weakness - Musculoskeletal Musculoskeletal: Abnormal Gait, Muscle Weakness Past Patient History - Infectious Disease Hx of Infectious Diseases: None - Tetanus Immunizations Tetanus Immunization: Unknown - Past Medical History & Family History Past Medical History?: Yes - Past Social History Smoking Status: Heavy Smoker > 10 Cigarettes Daily - CARDIAC Hx Cardiac Disorders: Yes Hx Hypercholesterolemia: Yes Hx Hypertension: Yes Hx Peripheral Vascular Disease: Yes Other/Comment: CAD - PULMONARY Hx Respiratory Disorders: Yes Hx Chronic Obstructive Pulmonary Disease (COPD): Yes - NEUROLOGICAL Hx Neurological Disorder: No - HEENT Hx HEENT Problems: No - RENAL Hx Chronic Kidney Disease: No - ENDOCRINE/METABOLIC Hx Endocrine Disorders: No - HEMATOLOGICAL/ONCOLOGICAL Hx Blood Disorders: Yes Hx Anemia: Yes Hx Blood Transfusions: Yes Hx Blood Transfusion Reaction: No - INTEGUMENTARY Hx Dermatological Problems: Yes - MUSCULOSKELETAL/RHEUMATOLOGICAL Hx Falls: Yes - GASTROINTESTINAL Hx Gastrointestinal Disorders: Yes Hx Gastroesophageal Reflux: Yes Other/Comment: HX OF G I BLEED - GENITOURINARY/GYNECOLOGICAL Hx Genitourinary Disorders: No - PSYCHIATRIC Hx Substance Use: No - SURGICAL HISTORY Hx Surgeries: Yes Hx Cardiac Catheterization: Yes Hx Coronary Stent: Yes (2013) Hx Joint Replacement: Yes (THR RIGHT 2014) Other/Comment: 09/25/16 i and d revision rthr. STOMACH SX - ANESTHESIA Hx Anesthesia: Yes Hx Anesthesia Reactions: No Hx Malignant Hyperthermia: No Meds Allergies/Adverse Reactions: Allergies Allergy/AdvReac Type Severity Reaction Status Date / Time bacitracin Allergy Unknown ANAPHYLAXIS Verified 07/04/16 15:15 neomycin Allergy Unknown ANAPHYLAXIS Verified 07/04/16 15:19 polymyxin B Allergy Unknown ANAPHYLAXIS Verified 07/04/16 15:21 Sulfa (Sulfonamide Allergy Unknown ANAPHYLAXIS Verified 07/04/16 15:20 Antibiotics) - Medications Medications: Current Medications Acetaminophen (Tylenol 325mg Tab) 650 mg PO Q6 PRN PRN Reason: Fever >100.4 F Albuterol/Ipratropium (Duoneb 3 Mg/0.5 Mg (3 Ml) Ud) 3 ml INH RQ6 PRN PRN Reason: Shortness of Breath Amlodipine Besylate (Norvasc) 5 mg PO DAILY [facility] Last Admin: 09/30/16 09:24 Dose: 5 mg Artificial Tears (Artificial Tears) 2 drop OD Q2H PRN PRN Reason: Dry eyes Atorvastatin Calcium (Lipitor) 10 mg PO HS [facility] Last Admin: 09/29/16 21:34 Dose: Not Given Clotrimazole (Lotrimin 1% Cream) 1 applic TOP BID [facility] Last Admin: 09/30/16 12:48 Dose: 1 unit Enoxaparin Sodium (Lovenox) 30 mg SC Q12 [facility] PRN Reason: Protocol Last Admin: 09/30/16 09:23 Dose: 30 mg Ferrous Sulfate (Feosol) 325 mg PO DAILY [facility] Last Admin: 09/30/16 09:22 Dose: 325 mg Vancomycin HCl 500 mg/ Sodium (Chloride) 100 mls @ 100 mls/hr IVPB Q12@0500, 1700 [facility] Last Admin: 09/30/16 05:55 Dose: 100 mls/hr Meropenem 500 mg/ Sodium (Chloride) 100 mls @ 100 mls/hr IVPB Q12@0500,1700 [facility] Last Admin: 09/30/16 04:53 Dose: 100 mls/hr Lactulose (Enulose) 20 gm PO DAILY PRN PRN Reason: Constipation Oxycodone/Acetaminophen (Percocet 5/325 Mg Tab) 1 tab PO Q4 PRN PRN Reason: Pain, moderate (4-7) Stop: 10/01/16 00:02 Last Admin: 09/29/16 04:09 Dose: 1 tab Pantoprazole Sodium (Protonix Ec Tab) 40 mg PO DAILY [facility] Last Admin: 09/30/16 09:24 Dose: 40 mg Zolpidem Tartrate (Ambien) 5 mg PO HS PRN PRN Reason: Sleep Physical Exam - Head Exam Head Exam: ATRAUMATIC, NORMAL INSPECTION, NORMOCEPHALIC - Eye Exam Eye Exam: EOMI, Normal appearance, PERRL Pupil Exam: NORMAL ACCOMODATION - ENT Exam ENT Exam: Mucous Membranes Moist, Normal Exam - Respiratory Exam Respiratory Exam: NORMAL BREATHING PATTERN - Cardiovascular Exam Cardiovascular Exam: Clicks - GI/Abdominal Exam GI & Abdominal Exam: Normal Bowel Sounds - Rectal Exam Rectal Exam: NORMAL INSPECTION - Exam External exam: NORMAL EXTERNAL EXAM - Extremities Exam Extremities exam: Positive for: normal inspection - Back Exam Back exam: NORMAL INSPECTION - Neurological Exam Neurological exam: Alert, CN II-XII Intact - Psychiatric Exam Psychiatric exam: Normal Affect, Normal Mood - Skin Skin Exam: Dry, Intact Results - Vital Signs Recent Vital Signs: Last Vital Signs Temp 98.1 F 09/30/16 08:24 Pulse 82 09/30/16 09:24 Resp 20 09/30/16 08:24 BP 128/59 L 09/30/16 09:24 Pulse Ox 95 09/30/16 08:24 - Labs Result Diagrams: 09/29/16 06:53 09/29/16 06:53 Assessment & Plan (1) Adjustment disorder Status: Acute Priority: High (2) Anemia Status: Acute (3) DVT prophylaxis Status: Acute (4) Hip dislocation, right Status: Acute Priority: High (5) Hip injury Status: Acute (6) S/P hip replacement Assessment and Plan: plan for physical, occupational, rec therapy for rom , strenghtening transfers and gait training Status: Acute Priority: High (7) Sty, external Status: Acute Priority: Medium (8) Tachycardia Status: Acute
--- NOTE | 2016-09-30 16:48 | CP.PCM.PN ---
Subjective - Date & Time of Evaluation Date of Evaluation: 09/30/16 Time of Evaluation: 16:44 - Subjective Subjective: ID NOTE PATIENT COMPLAINING OF PAIN TOLERATING REHAB SO FAR AFEBRILE GFR:44, CREATININE:1.2 CBC:14.1,VANCOMYCIN TROUGH:11.2 CULTURE:GROUP B STREP HAVE ASKED MICRO TO CHECK AGAINST CEPHALOSPORINS AND CARBAPENEMS FOR PRESENT CONTINUE VANCOMYCIN AND MEROPENEM MAY CONSIDER CHANGE PENDING MICRO RESULTS Objective - Vital Signs/Intake and Output Vital Signs (last 24 hours): Temp Pulse Resp BP Pulse Ox 98.1 F 82 20 128/59 L 95 09/30/16 08:24 09/30/16 09:24 09/30/16 08:24 09/30/16 09:24 09/30/16 08:24 Intake and Output: 09/30/16 09/30/16 06:59 18:59 Intake Total 200 Balance 200 - Medications Medications: Current Medications Acetaminophen (Tylenol 325mg Tab) 650 mg PO Q6 PRN PRN Reason: Fever >100.4 F Albuterol/Ipratropium (Duoneb 3 Mg/0.5 Mg (3 Ml) Ud) 3 ml INH RQ6 PRN PRN Reason: Shortness of Breath Amlodipine Besylate (Norvasc) 5 mg PO DAILY [facility] Last Admin: 09/30/16 09:24 Dose: 5 mg Artificial Tears (Artificial Tears) 2 drop OD Q2H PRN PRN Reason: Dry eyes Atorvastatin Calcium (Lipitor) 10 mg PO HS [facility] Last Admin: 09/29/16 21:34 Dose: Not Given Clotrimazole (Lotrimin 1% Cream) 1 applic TOP BID [facility] Last Admin: 09/30/16 16:22 Dose: 1 unit Enoxaparin Sodium (Lovenox) 30 mg SC Q12 [facility] PRN Reason: Protocol Last Admin: 09/30/16 09:23 Dose: 30 mg Ferrous Sulfate (Feosol) 325 mg PO DAILY [facility] Last Admin: 09/30/16 09:22 Dose: 325 mg Vancomycin HCl 500 mg/ Sodium (Chloride) 100 mls @ 100 mls/hr IVPB Q12@0500, 1700 [facility] Last Admin: 09/30/16 16:23 Dose: 100 mls/hr Meropenem 500 mg/ Sodium (Chloride) 100 mls @ 100 mls/hr IVPB Q12@0500,1700 [facility] Last Admin: 09/30/16 16:22 Dose: 100 mls/hr Lactulose (Enulose) 20 gm PO DAILY PRN PRN Reason: Constipation Oxycodone/Acetaminophen (Percocet 5/325 Mg Tab) 1 tab PO Q4 PRN PRN Reason: Pain, moderate (4-7) Stop: 10/01/16 00:02 Last Admin: 09/29/16 04:09 Dose: 1 tab Pantoprazole Sodium (Protonix Ec Tab) 40 mg PO DAILY [facility] Last Admin: 09/30/16 09:24 Dose: 40 mg Zolpidem Tartrate (Ambien) 5 mg PO HS PRN PRN Reason: Sleep - Labs Labs: 09/29/16 06:53 09/29/16 06:53
--- NOTE | 2016-09-30 16:52 | CP.PCM.PN ---
Subjective - Date & Time of Evaluation Date of Evaluation: 09/30/16 Time of Evaluation: 16:30 - Subjective Subjective: Pt seen and examined. Denied any complaint but when inquired about her BM, she claimed she has not had BM for a week. Objective - Vital Signs/Intake and Output Vital Signs (last 24 hours): Temp Pulse Resp BP Pulse Ox 98.1 F 82 20 128/59 L 95 09/30/16 08:24 09/30/16 09:24 09/30/16 08:24 09/30/16 09:24 09/30/16 08:24 Intake and Output: 09/30/16 09/30/16 06:59 18:59 Intake Total 200 Balance 200 - Medications Medications: Current Medications Acetaminophen (Tylenol 325mg Tab) 650 mg PO Q6 PRN PRN Reason: Fever >100.4 F Albuterol/Ipratropium (Duoneb 3 Mg/0.5 Mg (3 Ml) Ud) 3 ml INH RQ6 PRN PRN Reason: Shortness of Breath Amlodipine Besylate (Norvasc) 5 mg PO DAILY [facility] Last Admin: 09/30/16 09:24 Dose: 5 mg Artificial Tears (Artificial Tears) 2 drop OD Q2H PRN PRN Reason: Dry eyes Atorvastatin Calcium (Lipitor) 10 mg PO HS [facility] Last Admin: 09/29/16 21:34 Dose: Not Given Clotrimazole (Lotrimin 1% Cream) 1 applic TOP BID [facility] Last Admin: 09/30/16 16:22 Dose: 1 unit Enoxaparin Sodium (Lovenox) 30 mg SC Q12 [facility] PRN Reason: Protocol Last Admin: 09/30/16 09:23 Dose: 30 mg Ferrous Sulfate (Feosol) 325 mg PO DAILY [facility] Last Admin: 09/30/16 09:22 Dose: 325 mg Vancomycin HCl 500 mg/ Sodium (Chloride) 100 mls @ 100 mls/hr IVPB Q12@0500, 1700 [facility] Last Admin: 09/30/16 16:23 Dose: 100 mls/hr Meropenem 500 mg/ Sodium (Chloride) 100 mls @ 100 mls/hr IVPB Q12@0500,1700 [facility] Last Admin: 09/30/16 16:22 Dose: 100 mls/hr Lactulose (Enulose) 20 gm PO DAILY PRN PRN Reason: Constipation Lactulose (Enulose) 20 gm PO STAT [facility] Stop: 09/30/16 16:49 Oxycodone/Acetaminophen (Percocet 5/325 Mg Tab) 1 tab PO Q4 PRN PRN Reason: Pain, moderate (4-7) Stop: 10/01/16 00:02 Last Admin: 09/29/16 04:09 Dose: 1 tab Pantoprazole Sodium (Protonix Ec Tab) 40 mg PO DAILY [facility] Last Admin: 09/30/16 09:24 Dose: 40 mg Zolpidem Tartrate (Ambien) 5 mg PO HS PRN PRN Reason: Sleep - Labs Labs: 09/29/16 06:53 09/29/16 06:53 - Constitutional Appears: No Acute Distress - Head Exam Head Exam: ATRAUMATIC - Eye Exam Eye Exam: absent: Scleral icterus - ENT Exam ENT Exam: Mucous Membranes Moist - Neck Exam Neck Exam: absent: Meningismus - Respiratory Exam Respiratory Exam: absent: Rhonchi, Wheezes - Cardiovascular Exam Cardiovascular Exam: REGULAR RHYTHM, +S1, +S2 - GI/Abdominal Exam GI & Abdominal Exam: Soft. absent: Tenderness - Rectal Exam Rectal Exam: Deferred - Extremities Exam Extremities Exam: absent: Tenderness - Neurological Exam Neurological Exam: Alert, Oriented x3 - Psychiatric Exam Psychiatric exam: Normal Affect - Skin Skin Exam: Dry, Intact Assessment and Plan - Assessment and Plan (Free Text) Assessment: 74 yo female with PMHx significant for CAD/PAD, HTN, hyperlipidemia, diverticulosis, COPD, GERD, history of Right THR with dislocation and closed reduction was admitted via [facility] for revision of right hip. 1.Revision of THR post op day 4 Continue Meropenem and Vancomycin Incentive spirometry 2. HTN (hypertension) BP controlled continue Norvasc 3. History of Anemia Continue Ferrous Sulfate 4. CAD (coronary artery disease) asymptomatic Continue Lipitor 5. COPD (chronic obstructive pulmonary disease) asymptomatic Duoneb q 4hrs prn for SOB 6.DVT prophylaxis continue Lovenox [facility]
[2016-10-01] MEDS: Meropenem 500 MG in Sodium Chloride 0.9% 100 ML IVPB SCH ×2 (06:02→16:26)
[2016-10-01 06:41] LABS: BASO # 0.1 K/uL (0.0-0.2); BASO % 0.6 % (0.0-2.0); EOS # 0.6 K/uL (0.0-0.7); EOS % 5.2 % (0.0-4.0); HEMATOCRIT 27.8 % (34.0-47.0); LYMPH # 1.7 K/uL (1.0-4.3); LYMPH % 15.5 % (20.0-40.0); MEAN CELL VOLUME 87.5 fl (81.0-99.0); MEAN PLATELET VOLUME 7.8 fl (7.2-11.7); MONO % 17.9 % (0.0-10.0); NEUT # 6.8 K/uL (1.8-7.0); NEUT % 60.8 % (50.0-75.0); RED CELL DISTRIBUTION WIDTH 15.1 % (11.5-14.5); WHITE BLOOD COUNT 11.2 K/uL (4.8-10.8)
[2016-10-01 06:57] LABS: CALCIUM 9.7 mg/dL (8.4-10.2); POTASSIUM 3.8 MMOL/L (3.6-5.0)
[2016-10-01] MEDS: Pantoprazole 40 mg EC Tab PO SCH (08:39)
[2016-10-01] MEDS: Enoxaparin 30 mg Syringe SC SCH (08:40)
--- NOTE | 2016-10-01 11:37 | CP.PCM.PN ---
Subjective - Date & Time of Evaluation Date of Evaluation: 10/01/16 Time of Evaluation: 11:20 - Subjective Subjective: ID NOTE PATIENT'S VANCOMYCIN TROUGH WAS 23.2 HAVE STOPPED VANCOMYCIN,RANDOM VANCOMYCIN LEVEL ORDERED RENAL FUNCTION SO FAR IS SAME HAVE ASKED MICROBIOLOGY TO DO MORE COMPLETE SENSITIVITY TESTING Objective - Vital Signs/Intake and Output Vital Signs (last 24 hours): Temp Pulse Resp BP Pulse Ox 98.1 F 67 20 107/54 L 100 10/01/16 10:00 10/01/16 10:00 10/01/16 10:00 10/01/16 10:00 10/01/16 10:00 - Medications Medications: Current Medications Acetaminophen (Tylenol 325mg Tab) 650 mg PO Q6 PRN PRN Reason: Fever >100.4 F Albuterol/Ipratropium (Duoneb 3 Mg/0.5 Mg (3 Ml) Ud) 3 ml INH RQ6 PRN PRN Reason: Shortness of Breath Amlodipine Besylate (Norvasc) 5 mg PO DAILY [facility] Last Admin: 10/01/16 08:40 Dose: 5 mg Artificial Tears (Artificial Tears) 2 drop OD Q2H PRN PRN Reason: Dry eyes Atorvastatin Calcium (Lipitor) 10 mg PO HS [facility] Last Admin: 09/30/16 21:28 Dose: 10 mg Clotrimazole (Lotrimin 1% Cream) 1 applic TOP BID [facility] Last Admin: 10/01/16 08:40 Dose: 1 unit Ferrous Sulfate (Feosol) 325 mg PO DAILY [facility] Last Admin: 10/01/16 08:40 Dose: 325 mg Meropenem 500 mg/ Sodium (Chloride) 100 mls @ 100 mls/hr IVPB Q12@0500,1700 [facility] Last Admin: 10/01/16 06:02 Dose: 100 mls/hr Lactulose (Enulose) 20 gm PO DAILY PRN PRN Reason: Constipation Pantoprazole Sodium (Protonix Ec Tab) 40 mg PO DAILY [facility] Last Admin: 10/01/16 08:39 Dose: 40 mg - Labs Labs: 10/01/16 06:27 10/01/16 06:27
--- NOTE | 2016-10-01 13:04 | CP.PCM.PN ---
Subjective - Date & Time of Evaluation Date of Evaluation: 10/01/16 Time of Evaluation: 08:00 - Subjective Subjective: no acute of complaints of pain Objective - Vital Signs/Intake and Output Vital Signs (last 24 hours): Temp Pulse Resp BP Pulse Ox 98.1 F 67 20 107/54 L 100 10/01/16 10:00 10/01/16 10:00 10/01/16 10:00 10/01/16 10:00 10/01/16 10:00 - Medications Medications: Current Medications Acetaminophen (Tylenol 325mg Tab) 650 mg PO Q6 PRN PRN Reason: Fever >100.4 F Albuterol/Ipratropium (Duoneb 3 Mg/0.5 Mg (3 Ml) Ud) 3 ml INH RQ6 PRN PRN Reason: Shortness of Breath Amlodipine Besylate (Norvasc) 5 mg PO DAILY [facility] Last Admin: 10/01/16 08:40 Dose: 5 mg Artificial Tears (Artificial Tears) 2 drop OD Q2H PRN PRN Reason: Dry eyes Atorvastatin Calcium (Lipitor) 10 mg PO HS [facility] Last Admin: 09/30/16 21:28 Dose: 10 mg Clotrimazole (Lotrimin 1% Cream) 1 applic TOP BID [facility] Last Admin: 10/01/16 08:40 Dose: 1 unit Ferrous Sulfate (Feosol) 325 mg PO DAILY [facility] Last Admin: 10/01/16 08:40 Dose: 325 mg Meropenem 500 mg/ Sodium (Chloride) 100 mls @ 100 mls/hr IVPB Q12@0500,1700 [facility] Last Admin: 10/01/16 06:02 Dose: 100 mls/hr Lactulose (Enulose) 20 gm PO DAILY PRN PRN Reason: Constipation Pantoprazole Sodium (Protonix Ec Tab) 40 mg PO DAILY [facility] Last Admin: 10/01/16 08:39 Dose: 40 mg - Labs Labs: 10/01/16 06:27 10/01/16 06:27 - Head Exam Head Exam: ATRAUMATIC, NORMAL INSPECTION, NORMOCEPHALIC - Eye Exam Eye Exam: EOMI, Normal appearance, PERRL Pupil Exam: NORMAL ACCOMODATION - ENT Exam ENT Exam: Mucous Membranes Moist, Normal Exam - Respiratory Exam Respiratory Exam: NORMAL BREATHING PATTERN - Cardiovascular Exam Cardiovascular Exam: REGULAR RHYTHM - GI/Abdominal Exam GI & Abdominal Exam: Soft - Rectal Exam Rectal Exam: NORMAL INSPECTION - Exam External exam: NORMAL EXTERNAL EXAM - Extremities Exam Extremities Exam: Normal Capillary Refill, Normal Inspection - Back Exam Back Exam: NORMAL INSPECTION - Neurological Exam Neurological Exam: Alert, Awake Neuro motor strength exam: Left Upper Extremity: 3, Right Upper Extremity: 3, Left Lower Extremity: 3, Right Lower Extremity: 3 - Psychiatric Exam Psychiatric exam: Normal Affect, Normal Mood - Skin Skin Exam: Dry, Intact Assessment and Plan (1) Adjustment disorder Status: Acute (2) Anemia Status: Acute (3) DVT prophylaxis Status: Acute (4) Hip dislocation, right Assessment & Plan: plan for Ot and Pt discussed Dc planning no equipment needed Status: Acute (5) Hip injury Status: Acute (6) S/P hip replacement Status: Acute (7) Sty, external Status: Acute (8) Tachycardia Status: Acute
[2016-10-01] MEDS: Oxycodone/Acetaminophen 5/325 mg Tab PO PRN (23:35)
[2016-10-02] MEDS: Meropenem 500 MG in Sodium Chloride 0.9% 100 ML IVPB SCH ×2 (05:32→16:37)
[2016-10-02] MEDS: Enoxaparin 30 mg Syringe SC SCH ×2 (08:36→21:47)
[2016-10-02] MEDS: Pantoprazole 40 mg EC Tab PO SCH (08:36)
[2016-10-02] MEDS: Oxycodone/Acetaminophen 5/325 mg Tab PO PRN (09:06)
--- NOTE | 2016-10-02 19:28 | CP.PCM.PN ---
Subjective - Date & Time of Evaluation Date of Evaluation: 10/02/16 Time of Evaluation: 19:23 - Subjective Subjective: ID NOTE MICROBIOLOGY HAS SHOWED SENSITIVITIES TO ROCEPHEN FOR STREP AAND WILL SWITCH AND D/C MEROPENEM ROCEPHEN 2 GM IVPB Q24H WOULD CONTINUE ZYVOX 600MG PO BID TO COVER POSSIBILITY OF STAPH s HAVING NEPHROTOXICITY Objective - Vital Signs/Intake and Output Vital Signs (last 24 hours): Temp Pulse Resp BP Pulse Ox 97.7 F 67 20 116/52 L 98 10/02/16 16:48 10/02/16 16:48 10/02/16 16:48 10/02/16 16:48 10/02/16 16:48 - Medications Medications: Current Medications Acetaminophen (Tylenol 325mg Tab) 650 mg PO Q6 PRN PRN Reason: Fever >100.4 F Albuterol/Ipratropium (Duoneb 3 Mg/0.5 Mg (3 Ml) Ud) 3 ml INH RQ6 PRN PRN Reason: Shortness of Breath Amlodipine Besylate (Norvasc) 5 mg PO DAILY [facility] Last Admin: 10/02/16 08:37 Dose: 5 mg Artificial Tears (Artificial Tears) 2 drop OD Q2H PRN PRN Reason: Dry eyes Atorvastatin Calcium (Lipitor) 10 mg PO HS [facility] Last Admin: 10/01/16 21:33 Dose: Not Given Clotrimazole (Lotrimin 1% Cream) 1 applic TOP BID [facility] Last Admin: 10/02/16 16:38 Dose: 1 unit Enoxaparin Sodium (Lovenox) 30 mg SC Q12 [facility] PRN Reason: Protocol Last Admin: 10/02/16 08:36 Dose: 30 mg Ferrous Sulfate (Feosol) 325 mg PO DAILY [facility] Last Admin: 10/02/16 08:36 Dose: 325 mg Ceftriaxone Sodium 2 gm/ (Sodium Chloride) 100 mls @ 100 mls/hr IVPB DAILY [facility] Lactulose (Enulose) 20 gm PO DAILY PRN PRN Reason: Constipation Linezolid (Zyvox) 600 mg PO BID [facility] Oxycodone/Acetaminophen (Percocet 5/325 Mg Tab) 1 tab PO Q4 PRN PRN Reason: Pain, moderate (4-7) Stop: 10/04/16 23:25 Last Admin: 10/02/16 09:06 Dose: 1 tab Pantoprazole Sodium (Protonix Ec Tab) 40 mg PO DAILY [facility] Last Admin: 10/02/16 08:36 Dose: 40 mg Zolpidem Tartrate (Ambien) 5 mg PO HS PRN PRN Reason: Sleep - Labs Labs: 10/01/16 06:27 10/01/16 06:27
--- NOTE | 2016-10-02 19:43 | CP.PCM.PN ---
Subjective - Date & Time of Evaluation Date of Evaluation: 10/02/16 Time of Evaluation: 15:20 - Subjective Subjective: Pt seen and examined. Denied any complaint. Able to get by with 1 Percocet a day. Objective - Vital Signs/Intake and Output Vital Signs (last 24 hours): Temp Pulse Resp BP Pulse Ox 97.7 F 67 20 116/52 L 98 10/02/16 16:48 10/02/16 16:48 10/02/16 16:48 10/02/16 16:48 10/02/16 16:48 - Medications Medications: Current Medications Acetaminophen (Tylenol 325mg Tab) 650 mg PO Q6 PRN PRN Reason: Fever >100.4 F Albuterol/Ipratropium (Duoneb 3 Mg/0.5 Mg (3 Ml) Ud) 3 ml INH RQ6 PRN PRN Reason: Shortness of Breath Amlodipine Besylate (Norvasc) 5 mg PO DAILY [facility] Last Admin: 10/02/16 08:37 Dose: 5 mg Artificial Tears (Artificial Tears) 2 drop OD Q2H PRN PRN Reason: Dry eyes Atorvastatin Calcium (Lipitor) 10 mg PO HS [facility] Last Admin: 10/01/16 21:33 Dose: Not Given Clotrimazole (Lotrimin 1% Cream) 1 applic TOP BID [facility] Last Admin: 10/02/16 16:38 Dose: 1 unit Enoxaparin Sodium (Lovenox) 30 mg SC Q12 [facility] PRN Reason: Protocol Last Admin: 10/02/16 08:36 Dose: 30 mg Ferrous Sulfate (Feosol) 325 mg PO DAILY [facility] Last Admin: 10/02/16 08:36 Dose: 325 mg Ceftriaxone Sodium 2 gm/ (Sodium Chloride) 100 mls @ 100 mls/hr IVPB DAILY [facility] Lactulose (Enulose) 20 gm PO DAILY PRN PRN Reason: Constipation Linezolid (Zyvox) 600 mg PO BID [facility] Oxycodone/Acetaminophen (Percocet 5/325 Mg Tab) 1 tab PO Q4 PRN PRN Reason: Pain, moderate (4-7) Stop: 10/04/16 23:25 Last Admin: 10/02/16 09:06 Dose: 1 tab Pantoprazole Sodium (Protonix Ec Tab) 40 mg PO DAILY [facility] Last Admin: 10/02/16 08:36 Dose: 40 mg Zolpidem Tartrate (Ambien) 5 mg PO HS PRN PRN Reason: Sleep - Labs Labs: 10/01/16 06:27 10/01/16 06:27 - Constitutional Appears: No Acute Distress - Head Exam Head Exam: ATRAUMATIC - Eye Exam Eye Exam: absent: Scleral icterus - ENT Exam ENT Exam: Mucous Membranes Moist - Neck Exam Neck Exam: absent: Meningismus - Respiratory Exam Respiratory Exam: absent: Rhonchi, Wheezes, Respiratory Distress - Cardiovascular Exam Cardiovascular Exam: REGULAR RHYTHM, +S1, +S2 - GI/Abdominal Exam GI & Abdominal Exam: Soft. absent: Tenderness - Rectal Exam Rectal Exam: Deferred - Extremities Exam Extremities Exam: absent: Full ROM (limited ROM on right hip ) - Neurological Exam Neurological Exam: Alert, Oriented x3 - Psychiatric Exam Psychiatric exam: Normal Affect - Skin Skin Exam: Dry, Intact Assessment and Plan (1) Status post revision of total hip replacement Status: Acute (2) HTN (hypertension) Status: Chronic (3) Anemia Status: Acute (4) CAD (coronary artery disease) Status: Chronic (5) COPD (chronic obstructive pulmonary disease) Status: Chronic (6) DVT prophylaxis Status: Acute - Assessment and Plan (Free Text) Assessment: 74 yo female with PMHx significant for CAD/PAD, HTN, hyperlipidemia, diverticulosis, COPD, GERD, history of Right THR with dislocation and closed reduction was admitted via [facility] for revision of right hip. 1.Revision of THR post op day 6 wound culture grew Beta Hemolytic Strep antibiotic switched to IV Rocephin and PO Zyvox per ID 2. HTN (hypertension) BP controlled continue Norvasc 3. History of Anemia Continue Ferrous Sulfate 4. CAD (coronary artery disease) asymptomatic Continue Lipitor 5. COPD (chronic obstructive pulmonary disease) asymptomatic Duoneb q 4hrs prn for SOB 6.DVT prophylaxis continue Lovenox SCD
[2016-10-03 07:03] LABS: CALCIUM 9.5 mg/dL (8.4-10.2); POTASSIUM 4.3 MMOL/L (3.6-5.0)
--- NOTE | 2016-10-03 08:24 | CP.PCM.PN ---
Subjective - Date & Time of Evaluation Date of Evaluation: 10/03/16 Time of Evaluation: 08:20 - Subjective Subjective: S- pt without complaints/no pain, pt wishes "to go home" Objective - Vital Signs/Intake and Output Vital Signs (last 24 hours): Temp Pulse Resp BP Pulse Ox 97.7 F 65 20 111/55 L 99 10/02/16 20:46 10/02/16 20:46 10/02/16 20:46 10/02/16 20:46 10/02/16 20:46 - Medications Medications: Current Medications Acetaminophen (Tylenol 325mg Tab) 650 mg PO Q6 PRN PRN Reason: Fever >100.4 F Albuterol/Ipratropium (Duoneb 3 Mg/0.5 Mg (3 Ml) Ud) 3 ml INH RQ6 PRN PRN Reason: Shortness of Breath Amlodipine Besylate (Norvasc) 5 mg PO DAILY [facility] Last Admin: 10/02/16 08:37 Dose: 5 mg Artificial Tears (Artificial Tears) 2 drop OD Q2H PRN PRN Reason: Dry eyes Atorvastatin Calcium (Lipitor) 10 mg PO HS [facility] Last Admin: 10/02/16 21:46 Dose: Not Given Clotrimazole (Lotrimin 1% Cream) 1 applic TOP BID [facility] Last Admin: 10/02/16 16:38 Dose: 1 unit Enoxaparin Sodium (Lovenox) 30 mg SC Q12 [facility] PRN Reason: Protocol Last Admin: 10/02/16 21:47 Dose: 30 mg Ferrous Sulfate (Feosol) 325 mg PO DAILY [facility] Last Admin: 10/02/16 08:36 Dose: 325 mg Ceftriaxone Sodium 2 gm/ (Sodium Chloride) 100 mls @ 100 mls/hr IVPB DAILY@ 1700 [facility] Lactulose (Enulose) 20 gm PO DAILY PRN PRN Reason: Constipation Linezolid (Zyvox) 600 mg PO BID [facility] Oxycodone/Acetaminophen (Percocet 5/325 Mg Tab) 1 tab PO Q4 PRN PRN Reason: Pain, moderate (4-7) Stop: 10/04/16 23:25 Last Admin: 10/02/16 09:06 Dose: 1 tab Pantoprazole Sodium (Protonix Ec Tab) 40 mg PO DAILY [facility] Last Admin: 10/02/16 08:36 Dose: 40 mg Zolpidem Tartrate (Ambien) 5 mg PO HS PRN PRN Reason: Sleep - Labs Labs: 10/01/16 06:27 10/03/16 06:00 - Additional Findings Additional findings: Objective stance/gait- defrred hip wound dressing dry and intact pt comfortable with gait Assessment and Plan - Assessment and Plan (Free Text) Assessment: A- s/p successful revision THR P weigth bearing to tolerance orthopedcially stable thrmobmoembolic prophylaxis as per hosiptalist ID f/[id number] per Dr moore
[2016-10-03] MEDS: Pantoprazole 40 mg EC Tab PO SCH (09:48)
[2016-10-03] MEDS: Enoxaparin 30 mg Syringe SC SCH ×2 (09:48→21:50)
--- NOTE | 2016-10-03 11:48 | CP.PCM.PN ---
Subjective - Date & Time of Evaluation Date of Evaluation: 10/03/16 Time of Evaluation: 06:30 - Subjective Subjective: no acute complaints of any pain Objective - Vital Signs/Intake and Output Vital Signs (last 24 hours): Temp Pulse Resp BP Pulse Ox 97.7 F 65 20 111/55 L 99 10/02/16 20:46 10/02/16 20:46 10/02/16 20:46 10/02/16 20:46 10/02/16 20:46 - Medications Medications: Current Medications Acetaminophen (Tylenol 325mg Tab) 650 mg PO Q6 PRN PRN Reason: Fever >100.4 F Albuterol/Ipratropium (Duoneb 3 Mg/0.5 Mg (3 Ml) Ud) 3 ml INH RQ6 PRN PRN Reason: Shortness of Breath Amlodipine Besylate (Norvasc) 5 mg PO DAILY [facility] Last Admin: 10/02/16 08:37 Dose: 5 mg Artificial Tears (Artificial Tears) 2 drop OD Q2H PRN PRN Reason: Dry eyes Atorvastatin Calcium (Lipitor) 10 mg PO HS [facility] Last Admin: 10/02/16 21:46 Dose: Not Given Clotrimazole (Lotrimin 1% Cream) 1 applic TOP BID [facility] Last Admin: 10/02/16 16:38 Dose: 1 unit Enoxaparin Sodium (Lovenox) 30 mg SC Q12 [facility] PRN Reason: Protocol Last Admin: 10/03/16 09:48 Dose: 30 mg Ferrous Sulfate (Feosol) 325 mg PO DAILY [facility] Last Admin: 10/03/16 09:48 Dose: 325 mg Ceftriaxone Sodium 2 gm/ (Sodium Chloride) 100 mls @ 100 mls/hr IVPB DAILY@ 1700 [facility] Lactulose (Enulose) 20 gm PO DAILY PRN PRN Reason: Constipation Linezolid (Zyvox) 600 mg PO BID [facility] Last Admin: 10/03/16 09:48 Dose: 600 mg Oxycodone/Acetaminophen (Percocet 5/325 Mg Tab) 1 tab PO Q4 PRN PRN Reason: Pain, moderate (4-7) Stop: 10/04/16 23:25 Last Admin: 10/02/16 09:06 Dose: 1 tab Pantoprazole Sodium (Protonix Ec Tab) 40 mg PO DAILY [facility] Last Admin: 10/03/16 09:48 Dose: 40 mg Zolpidem Tartrate (Ambien) 5 mg PO HS PRN PRN Reason: Sleep - Labs Labs: 10/01/16 06:27 10/03/16 06:00 - Head Exam Head Exam: ATRAUMATIC, NORMAL INSPECTION, NORMOCEPHALIC - Eye Exam Eye Exam: EOMI, Normal appearance, PERRL Pupil Exam: NORMAL ACCOMODATION, PERRL - ENT Exam ENT Exam: Mucous Membranes Moist, Normal Exam - Neck Exam Neck Exam: Normal Inspection - Respiratory Exam Respiratory Exam: NORMAL BREATHING PATTERN - Cardiovascular Exam Cardiovascular Exam: REGULAR RHYTHM - GI/Abdominal Exam GI & Abdominal Exam: Normal Bowel Sounds - Rectal Exam Rectal Exam: NORMAL INSPECTION - Exam External exam: NORMAL EXTERNAL EXAM - Extremities Exam Extremities Exam: Normal Capillary Refill - Back Exam Back Exam: NORMAL INSPECTION - Neurological Exam Neurological Exam: Alert, Awake Neuro motor strength exam: Left Upper Extremity: 3, Right Upper Extremity: 3, Left Lower Extremity: 3, Right Lower Extremity: 3 - Psychiatric Exam Psychiatric exam: Normal Affect, Normal Mood - Skin Skin Exam: Dry, Intact Assessment and Plan (1) Adjustment disorder Status: Acute (2) Anemia Status: Acute (3) DVT prophylaxis Status: Acute (4) Hip dislocation, right Assessment & Plan: plan for physical, occupational and rec therapy [facility] Status: Acute (5) Hip injury Status: Acute (6) S/P hip replacement Status: Acute (7) Sty, external Status: Acute (8) Tachycardia Status: Acute
[2016-10-03] MEDS: Oxycodone/Acetaminophen 5/325 mg Tab PO PRN (12:13)
--- NOTE | 2016-10-03 15:38 | RAD ---
PROCEDURE: Right Hip Radiographs. HISTORY: s/p R THR- revision COMPARISON: Comparison is made to the previous study dated 09/25/2016 FINDINGS: BONES: The patient is again status post right hip arthroplasty. The hardware are seen at appropriate position. No evidence of significant interval change compared to the previous exam. JOINTS: Moderate to mildly severe left hip osteoarthritis. SOFT TISSUES: Vascular calcification is again noted. Round opacities overlying the right hip of uncertain etiology again seen OTHER FINDINGS: None. IMPRESSION: No significant interval change since the previous last exam.
[2016-10-03] MEDS: cefTRIAXone 2 GM in Sodium Chloride 0.9% 100 ML IVPB SCH (17:52)
[2016-10-04] MEDS: Enoxaparin 30 mg Syringe SC SCH ×2 (08:39→22:11)
[2016-10-04] MEDS: Pantoprazole 40 mg EC Tab PO SCH (08:39)
[2016-10-04] MEDS: cefTRIAXone 2 GM in Sodium Chloride 0.9% 100 ML IVPB SCH (17:12)
[2016-10-05] MEDS: Enoxaparin 30 mg Syringe SC SCH (08:31)
[2016-10-05] MEDS: Pantoprazole 40 mg EC Tab PO SCH (08:32)
[2016-10-05] MEDS: cefTRIAXone 2 GM in Sodium Chloride 0.9% 100 ML IVPB SCH (17:23)
[2016-10-06 06:55] LABS: HEMATOCRIT 26.4 % (34.0-47.0); MEAN CORPUSCULAR HEMOGLOBIN 28.3 pg (27.0-31.0); MEAN CORPUSCULAR HGB CONC 32.2 g/dL (33.0-37.0); RED CELL DISTRIBUTION WIDTH 14.6 % (11.5-14.5); WHITE BLOOD COUNT 10.8 K/uL (4.8-10.8)
[2016-10-06 08:16] VITALS: RESP 20
[2016-10-06] MEDS: Pantoprazole 40 mg EC Tab PO SCH (08:24)
[2016-10-06] MEDS: Enoxaparin 30 mg Syringe SC SCH ×2 (13:15→22:04)
[2016-10-06] MEDS: cefTRIAXone 2 GM in Sodium Chloride 0.9% 100 ML IVPB SCH (17:55)
[2016-10-06] MEDS ORDERED: Artificial Tears Opht Soln OD PRN (19:58)
[2016-10-06 20:26] LABS: PARTIAL THROMBOPLASTIN TIME 29.3 SECONDS (23.3-32.5)
[2016-10-07] MEDS: Pantoprazole 40 mg EC Tab PO SCH (08:45)
[2016-10-07] MEDS: Enoxaparin 30 mg Syringe SC SCH ×2 (08:46→21:13)
--- NOTE | 2016-10-07 13:44 | CP.PCM.PN ---
Subjective - Date & Time of Evaluation Date of Evaluation: 10/04/16 Time of Evaluation: 11:00 - Subjective Subjective: no acute hip or leg discomfort Objective - Vital Signs/Intake and Output Vital Signs (last 24 hours): Temp Pulse Resp BP Pulse Ox 98.1 F 69 20 113/46 L 100 10/07/16 10:00 10/07/16 10:00 10/07/16 10:00 10/07/16 10:00 10/07/16 10:00 - Medications Medications: Current Medications Acetaminophen (Tylenol 325mg Tab) 650 mg PO Q6 PRN PRN Reason: Fever >100.4 F Albuterol/Ipratropium (Duoneb 3 Mg/0.5 Mg (3 Ml) Ud) 3 ml INH RQ6 PRN PRN Reason: Shortness of Breath Amlodipine Besylate (Norvasc) 5 mg PO DAILY [facility] Last Admin: 10/07/16 08:45 Dose: 5 mg Artificial Tears (Artificial Tears) 2 drop OD Q2H PRN PRN Reason: Dry eyes Last Admin: 10/06/16 22:04 Dose: 2 u Atorvastatin Calcium (Lipitor) 10 mg PO HS [facility] Last Admin: 10/06/16 22:02 Dose: Not Given Clotrimazole (Lotrimin 1% Cream) 1 applic TOP BID [facility] Last Admin: 10/07/16 08:46 Dose: 1 unit Enoxaparin Sodium (Lovenox) 30 mg SC Q12 [facility] PRN Reason: Protocol Last Admin: 10/07/16 08:46 Dose: 30 mg Ferrous Sulfate (Feosol) 325 mg PO DAILY [facility] Last Admin: 10/07/16 08:45 Dose: 325 mg Ceftriaxone Sodium 2 gm/ (Sodium Chloride) 100 mls @ 100 mls/hr IVPB DAILY@ 1700 [facility] Last Admin: 10/06/16 17:55 Dose: 100 mls/hr Lactulose (Enulose) 20 gm PO DAILY PRN PRN Reason: Constipation Linezolid (Zyvox) 600 mg PO BID [facility] Last Admin: 10/07/16 08:45 Dose: 600 mg Pantoprazole Sodium (Protonix Ec Tab) 40 mg PO DAILY [facility] Last Admin: 10/07/16 08:45 Dose: 40 mg - Labs Labs: 10/06/16 06:25 10/03/16 06:00 PT 10.6 SECONDS (9.6-11.2) 10/06/16 18:45 INR 1.02 (0.92-1.08) 10/06/16 18:45 APTT 29.3 SECONDS (23.3-32.5) 10/06/16 18:45 - Head Exam Head Exam: ATRAUMATIC, NORMAL INSPECTION, NORMOCEPHALIC - Eye Exam Eye Exam: EOMI, Normal appearance, PERRL Pupil Exam: NORMAL ACCOMODATION - ENT Exam ENT Exam: Mucous Membranes Moist, Normal Exam - Neck Exam Neck Exam: Normal Inspection - Respiratory Exam Respiratory Exam: NORMAL BREATHING PATTERN - Cardiovascular Exam Cardiovascular Exam: REGULAR RHYTHM - GI/Abdominal Exam GI & Abdominal Exam: Normal Bowel Sounds - Exam External exam: NORMAL EXTERNAL EXAM - Extremities Exam Extremities Exam: Full ROM - Back Exam Back Exam: NORMAL INSPECTION - Neurological Exam Neurological Exam: Alert, Awake Neuro motor strength exam: Left Upper Extremity: 4, Right Upper Extremity: 4, Left Lower Extremity: 4, Right Lower Extremity: 3 - Psychiatric Exam Psychiatric exam: Normal Affect, Normal Mood - Skin Skin Exam: Dry, Intact Assessment and Plan (1) Adjustment disorder Status: Acute (2) Anemia Status: Acute (3) DVT prophylaxis Status: Acute (4) Hip dislocation, right Assessment & Plan: status post revision of right hip replacement, PT and Ot therapy Status: Acute (5) Hip injury Status: Acute (6) S/P hip replacement Status: Acute (7) Sty, external Status: Acute (8) Tachycardia Status: Acute
--- NOTE | 2016-10-07 13:47 | CP.PCM.PN ---
Subjective - Date & Time of Evaluation Date of Evaluation: 10/07/16 Time of Evaluation: 12:00 - Subjective Subjective: patient with no hip pain but wants to go home, no calf pain Objective - Vital Signs/Intake and Output Vital Signs (last 24 hours): Temp Pulse Resp BP Pulse Ox 98.1 F 69 20 113/46 L 100 10/07/16 10:00 10/07/16 10:00 10/07/16 10:00 10/07/16 10:00 10/07/16 10:00 - Medications Medications: Current Medications Acetaminophen (Tylenol 325mg Tab) 650 mg PO Q6 PRN PRN Reason: Fever >100.4 F Albuterol/Ipratropium (Duoneb 3 Mg/0.5 Mg (3 Ml) Ud) 3 ml INH RQ6 PRN PRN Reason: Shortness of Breath Amlodipine Besylate (Norvasc) 5 mg PO DAILY [facility] Last Admin: 10/07/16 08:45 Dose: 5 mg Artificial Tears (Artificial Tears) 2 drop OD Q2H PRN PRN Reason: Dry eyes Last Admin: 10/06/16 22:04 Dose: 2 u Atorvastatin Calcium (Lipitor) 10 mg PO HS [facility] Last Admin: 10/06/16 22:02 Dose: Not Given Clotrimazole (Lotrimin 1% Cream) 1 applic TOP BID [facility] Last Admin: 10/07/16 08:46 Dose: 1 unit Enoxaparin Sodium (Lovenox) 30 mg SC Q12 [facility] PRN Reason: Protocol Last Admin: 10/07/16 08:46 Dose: 30 mg Ferrous Sulfate (Feosol) 325 mg PO DAILY [facility] Last Admin: 10/07/16 08:45 Dose: 325 mg Ceftriaxone Sodium 2 gm/ (Sodium Chloride) 100 mls @ 100 mls/hr IVPB DAILY@ 1700 [facility] Last Admin: 10/06/16 17:55 Dose: 100 mls/hr Lactulose (Enulose) 20 gm PO DAILY PRN PRN Reason: Constipation Linezolid (Zyvox) 600 mg PO BID [facility] Last Admin: 10/07/16 08:45 Dose: 600 mg Pantoprazole Sodium (Protonix Ec Tab) 40 mg PO DAILY [facility] Last Admin: 10/07/16 08:45 Dose: 40 mg - Labs Labs: 10/06/16 06:25 10/03/16 06:00 PT 10.6 SECONDS (9.6-11.2) 10/06/16 18:45 INR 1.02 (0.92-1.08) 10/06/16 18:45 APTT 29.3 SECONDS (23.3-32.5) 10/06/16 18:45 - Head Exam Head Exam: ATRAUMATIC, NORMAL INSPECTION, NORMOCEPHALIC - Eye Exam Eye Exam: EOMI, Normal appearance, PERRL Pupil Exam: NORMAL ACCOMODATION - ENT Exam ENT Exam: Mucous Membranes Moist, Normal Exam - Respiratory Exam Respiratory Exam: NORMAL BREATHING PATTERN - Cardiovascular Exam Cardiovascular Exam: REGULAR RHYTHM - GI/Abdominal Exam GI & Abdominal Exam: Normal Bowel Sounds - Exam External exam: NORMAL EXTERNAL EXAM - Extremities Exam Extremities Exam: Normal Inspection - Back Exam Back Exam: NORMAL INSPECTION - Neurological Exam Neurological Exam: Alert, Awake Neuro motor strength exam: Left Upper Extremity: 4, Right Upper Extremity: 4, Left Lower Extremity: 4, Right Lower Extremity: 3 - Psychiatric Exam Psychiatric exam: Normal Affect, Normal Mood Assessment and Plan (1) Adjustment disorder Status: Acute (2) Anemia Status: Acute (3) DVT prophylaxis Status: Acute (4) Hip dislocation, right Assessment & Plan: status post hip revision, range of motion, strenghthening, transfers and gait training, follow up with skin and vitals medical treatment as per PMD Status: Acute (5) Hip injury Status: Acute (6) S/P hip replacement Status: Acute (7) Sty, external Status: Acute (8) Tachycardia Status: Acute
--- NOTE | 2016-10-07 15:43 | CP.PCM.PN ---
Subjective - Date & Time of Evaluation Date of Evaluation: 10/07/16 Time of Evaluation: 15:15 - Subjective Subjective: Hospitalist Progress Note (Patient was seen and examined at 3:20 PM 10/07/16 712- 1) 76 year old female (PMHx CAD, PAD, HTN, HLD, Diverticulosis, COPD, GERD, Right THR) was admitted to [facility] on 09/26/16 for revision of Right THR that occurred on 09/26/16. She was discharged to TCU at [facility] for continued care and PT/OT on . ROS NO bowel movement today (last was on Thursday and it was normal) Right eye irritation earlier (so she was rubbing it with her finger and massaging a lotion from home around the eye and she was instructed to stop doing this, not bothering now) Pain in the Right Hip is controlled and currently not requiring NO Chest Pain, NO palpitations, NO SOB/Cough/Wheezing, NO dyshpagia/odynophagia , NO abdominal pain, NO n/v/d, , NO burning/pain with urination, NO lightheadedness/dizziness, NO new changes in hearing/ear pain, NO paresthesias, NO edema Exam: HEENT: NCA, EOMI, PERRLA, NO pharyngeal erythema/exudate, NO thyromegaly, NO cervical/supraclavicular/submandibular lymphadenopathy, Right Periorbital pink skin: normal conjunctiva, no erythema, no warmth, no edema Cardio: NS1 and NS2, NO M/R/G Respiratory: CTA B/L NO R/R?W GI: BSx4, Soft, NT, NO HSM, NO guarding/rebound tenderness, ND Ext: NO Edema, Capillary Refill is 2 seconds, Pulses are strong and equal, NO loss of sensation, NO cyanosis Neuro: CN II throug XII are grossly intact Skin: Stage II Sacral Ulcer inferior aspect, Moles Right Lateral Nose and Left Lateral Neck Assessment and Plan: 1). Right THR Revision POD #12 PT weight bearing as tolerated Wound Culture 09/26/16 showed Beta Hemalytic Strep ID Dr. Rose stated that patient will require 6 more weeks of antibiotics: Ceftriaxone 2 gm IV 1x/day and Zyvox 600 mg PO BID Rx provided to Nurse for PICC Line to be placed. Nip Wrapper is aware to make arrangments for home infusion of Ceftriaxone when patient is cleared for discharge by PT Lovenox 30 mg SC Q12H Orthopedics Dr. Tolbert 2). HTN Norvasc 5 mg PO 1x/day 3). HLD/Hx CAD Lipitor 10 mg PO QHS 4). Sacral Stage II Ulcer/Moles on Right Lateral Nose and Left Lateral Neck Patient states that the Sacral Ulcer is chronic and that she has been followed by wound care at this institution in the past: I spoke with Wound Care Nurse and patient has allowed changing of Aquacel Covering by the Wound Care Nurse on 10/08/16. MediHoney She is also aware of the moles (in the aforementioned areas) and she again does not want these addressed 5). Hx COPD NO complaints at this time Duoneb Q6H PRN SOB/Wheezing 6). Hx Anemia Ferrous Sulfate 325 mg PO 1x/day 7). Prophylacitic Measures Tylenol 650 mg PO Q6H PRN F>100.4 Artificial Tears 2 drops Both Eyes Q12H Lotrimin 1 % Cream Topical 2x/day Protonix 40 mg PO 1x/day Lovenox 30 mg SC Q12H Lactulose 20 gm PO 1x/day Objective - Vital Signs/Intake and Output Vital Signs (last 24 hours): Temp Pulse Resp BP Pulse Ox 98.1 F 69 20 113/46 L 100 10/07/16 10:00 10/07/16 10:00 10/07/16 10:00 10/07/16 10:00 10/07/16 10:00 - Medications Medications: Current Medications Acetaminophen (Tylenol 325mg Tab) 650 mg PO Q6 PRN PRN Reason: Fever >100.4 F Albuterol/Ipratropium (Duoneb 3 Mg/0.5 Mg (3 Ml) Ud) 3 ml INH RQ6 PRN PRN Reason: Shortness of Breath Amlodipine Besylate (Norvasc) 5 mg PO DAILY [facility] Last Admin: 10/07/16 08:45 Dose: 5 mg Artificial Tears (Artificial Tears) 2 drop OD Q2H PRN PRN Reason: Dry eyes Last Admin: 10/06/16 22:04 Dose: 2 u Atorvastatin Calcium (Lipitor) 10 mg PO HS [facility] Last Admin: 10/06/16 22:02 Dose: Not Given Clotrimazole (Lotrimin 1% Cream) 1 applic TOP BID [facility] Last Admin: 10/07/16 08:46 Dose: 1 unit Enoxaparin Sodium (Lovenox) 30 mg SC Q12 [facility] PRN Reason: Protocol Last Admin: 10/07/16 08:46 Dose: 30 mg Ferrous Sulfate (Feosol) 325 mg PO DAILY [facility] Last Admin: 10/07/16 08:45 Dose: 325 mg Ceftriaxone Sodium 2 gm/ (Sodium Chloride) 100 mls @ 100 mls/hr IVPB DAILY@ 1700 [facility] Last Admin: 10/06/16 17:55 Dose: 100 mls/hr Lactulose (Enulose) 20 gm PO DAILY PRN PRN Reason: Constipation Linezolid (Zyvox) 600 mg PO BID [facility] Last Admin: 10/07/16 08:45 Dose: 600 mg Pantoprazole Sodium (Protonix Ec Tab) 40 mg PO DAILY [facility] Last Admin: 10/07/16 08:45 Dose: 40 mg Saccharomyces Boulardii (Florastor) 250 mg PO BID [facility] - Labs Labs: 10/06/16 06:25 10/03/16 06:00 PT 10.6 SECONDS (9.6-11.2) 10/06/16 18:45 INR 1.02 (0.92-1.08) 10/06/16 18:45 APTT 29.3 SECONDS (23.3-32.5) 10/06/16 18:45
[2016-10-07] MEDS: Saccharomyces Boulardi 250 mg Cap PO SCH (17:47)
[2016-10-07] MEDS: cefTRIAXone 2 GM in Sodium Chloride 0.9% 100 ML IVPB SCH (17:48)
[2016-10-08 08:17] LABS: BASO # 0.1 K/uL (0.0-0.2); BASO % 0.5 % (0.0-2.0); EOS # 0.4 K/uL (0.0-0.7); EOS % 3.4 % (0.0-4.0); HEMATOCRIT 29.6 % (34.0-47.0); LYMPH # 1.5 K/uL (1.0-4.3); LYMPH % 12.3 % (20.0-40.0); MEAN CELL VOLUME 88.5 fl (81.0-99.0); MEAN CORPUSCULAR HEMOGLOBIN 28.1 pg (27.0-31.0); MEAN CORPUSCULAR HGB CONC 31.8 g/dL (33.0-37.0); MEAN PLATELET VOLUME 7.8 fl (7.2-11.7); MONO # 1.3 K/uL (0.0-0.8); MONO % 10.9 % (0.0-10.0); NEUT # 8.8 K/uL (1.8-7.0); NEUT % 72.9 % (50.0-75.0); RED CELL DISTRIBUTION WIDTH 15.1 % (11.5-14.5); WHITE BLOOD COUNT 12.1 K/uL (4.8-10.8)
[2016-10-08] MEDS: Pantoprazole 40 mg EC Tab PO SCH (08:19)
[2016-10-08] MEDS: Enoxaparin 30 mg Syringe SC SCH ×2 (08:19→19:05)
[2016-10-08] MEDS: Saccharomyces Boulardi 250 mg Cap PO SCH ×2 (08:19→17:20)
--- NOTE | 2016-10-08 12:38 | CP.PCM.PN ---
Subjective - Date & Time of Evaluation Date of Evaluation: 10/08/16 Time of Evaluation: 10:00 - Subjective Subjective: patient with problems no acute complaints of pain Objective - Vital Signs/Intake and Output Vital Signs (last 24 hours): Temp Pulse Resp BP Pulse Ox 97.7 F 82 20 131/55 L 100 10/08/16 08:04 10/08/16 08:19 10/08/16 08:04 10/08/16 08:19 10/08/16 08:04 - Medications Medications: Current Medications Acetaminophen (Tylenol 325mg Tab) 650 mg PO Q6 PRN PRN Reason: Fever >100.4 F Albuterol/Ipratropium (Duoneb 3 Mg/0.5 Mg (3 Ml) Ud) 3 ml INH RQ6 PRN PRN Reason: Shortness of Breath Amlodipine Besylate (Norvasc) 5 mg PO DAILY [facility] Last Admin: 10/08/16 08:19 Dose: 5 mg Artificial Tears (Artificial Tears) 2 drop OD Q2H PRN PRN Reason: Dry eyes Last Admin: 10/06/16 22:04 Dose: 2 u Atorvastatin Calcium (Lipitor) 10 mg PO HS [facility] Last Admin: 10/07/16 21:05 Dose: Not Given Clotrimazole (Lotrimin 1% Cream) 1 applic TOP BID [facility] Last Admin: 10/08/16 08:20 Dose: 1 unit Enoxaparin Sodium (Lovenox) 30 mg SC Q12 [facility] PRN Reason: Protocol Last Admin: 10/08/16 08:19 Dose: Not Given Ferrous Sulfate (Feosol) 325 mg PO DAILY [facility] Last Admin: 10/08/16 08:19 Dose: 325 mg Ceftriaxone Sodium 2 gm/ (Sodium Chloride) 100 mls @ 100 mls/hr IVPB DAILY@ 1700 [facility] Last Admin: 10/07/16 17:48 Dose: 100 mls/hr Lactulose (Enulose) 20 gm PO DAILY PRN PRN Reason: Constipation Linezolid (Zyvox) 600 mg PO BID [facility] Last Admin: 10/08/16 08:19 Dose: 600 mg Pantoprazole Sodium (Protonix Ec Tab) 40 mg PO DAILY [facility] Last Admin: 10/08/16 08:19 Dose: 40 mg Saccharomyces Boulardii (Florastor) 250 mg PO BID [facility] Last Admin: 10/08/16 08:19 Dose: 250 mg - Labs Labs: 10/08/16 07:50 10/03/16 06:00 PT 10.6 SECONDS (9.6-11.2) 10/06/16 18:45 INR 1.02 (0.92-1.08) 10/06/16 18:45 APTT 29.3 SECONDS (23.3-32.5) 10/06/16 18:45 - Head Exam Head Exam: ATRAUMATIC, NORMAL INSPECTION, NORMOCEPHALIC - Eye Exam Eye Exam: EOMI, Normal appearance, PERRL Pupil Exam: NORMAL ACCOMODATION - ENT Exam ENT Exam: Mucous Membranes Moist, Normal Exam - Respiratory Exam Respiratory Exam: NORMAL BREATHING PATTERN - Cardiovascular Exam Cardiovascular Exam: REGULAR RHYTHM - GI/Abdominal Exam GI & Abdominal Exam: Soft, Normal Bowel Sounds - Rectal Exam Rectal Exam: NORMAL INSPECTION - Exam External exam: NORMAL EXTERNAL EXAM - Extremities Exam Extremities Exam: Normal Inspection - Back Exam Back Exam: NORMAL INSPECTION - Neurological Exam Neurological Exam: Alert, Awake Neuro motor strength exam: Left Upper Extremity: 4, Right Upper Extremity: 3, Left Lower Extremity: 4, Right Lower Extremity: 4 - Psychiatric Exam Psychiatric exam: Normal Affect, Normal Mood - Skin Skin Exam: Normal Color Assessment and Plan (1) Adjustment disorder Status: Acute (2) Anemia Status: Acute (3) DVT prophylaxis Status: Acute (4) Hip dislocation, right Assessment & Plan: plan for physical, occupational and rec therapy patinet still needs IV antibiotics with picc line Dc date as per PMD patient has equipment Status: Acute (5) Hip injury Status: Acute (6) S/P hip replacement Status: Acute (7) Sty, external Status: Acute (8) Tachycardia Status: Acute
[2016-10-08] MEDS: cefTRIAXone 2 GM in Sodium Chloride 0.9% 100 ML IVPB SCH (16:26)
[2016-10-09] MEDS: Enoxaparin 30 mg Syringe SC SCH ×2 (06:54→16:27)
[2016-10-09] MEDS: Pantoprazole 40 mg EC Tab PO SCH (08:22)
[2016-10-09] MEDS: Saccharomyces Boulardi 250 mg Cap PO SCH ×2 (08:22→16:27)
[2016-10-09 08:24] VITALS: BP 114/52; PULSE 68
[2016-10-09 08:32] VITALS: TEMP 98.1; O2SAT 100
--- NOTE | 2016-10-09 14:10 | CP.PCM.DIS ---
Provider - Provider Date of Admission: 09/27/16 21:30 Attending physician: Paco Dorantes Primary care physician: Dr. Que Aly Consults: Ortho consult ID consult PT / Ot Time Spent in preparation of Discharge (in minutes): 15 Hospital Course - Lab Results Lab Results: Most Recent Lab Values WBC 12.1 K/uL (4.8-10.8) H 10/08/16 07:50 RBC 3.35 Mil/uL (3.80-5.20) L 10/08/16 07:50 Hgb 9.4 g/dL (12.0-16.0) L 10/08/16 07:50 Hct 29.6 % (34.0-47.0) L 10/08/16 07:50 MCV 88.5 fl (81.0-99.0) 10/08/16 07:50 MCH 28.1 pg (27.0-31.0) 10/08/16 07:50 MCHC 31.8 g/dL (33.0-37.0) L 10/08/16 07:50 RDW 15.1 % (11.5-14.5) H 10/08/16 07:50 Plt Count 450 K/uL (130-400) H 10/08/16 07:50 MPV 7.8 fl (7.2-11.7) 10/08/16 07:50 Neut % (Auto) 72.9 % (50.0-75.0) 10/08/16 07:50 Lymph % (Auto) 12.3 % (20.0-40.0) L 10/08/16 07:50 Jewell % (Auto) 10.9 % (0.0-10.0) H 10/08/16 07:50 Eos % (Auto) 3.4 % (0.0-4.0) 10/08/16 07:50 Baso % (Auto) 0.5 % (0.0-2.0) 10/08/16 07:50 Neut # 8.8 K/uL (1.8-7.0) H 10/08/16 07:50 Lymph # 1.5 K/uL (1.0-4.3) 10/08/16 07:50 Jewell # 1.3 K/uL (0.0-0.8) H 10/08/16 07:50 Eos # 0.4 K/uL (0.0-0.7) 10/08/16 07:50 Baso # 0.1 K/uL (0.0-0.2) 10/08/16 07:50 Neutrophils % (Manual) 75 % (42-75) 09/29/16 06:53 Lymphocytes % (Manual) 5 % (20-50) L 09/29/16 06:53 Reactive Lymphs % 1 % (0-0) H 09/29/16 06:53 Monocytes % (Manual) 17 % (0-10) H 09/29/16 06:53 Eosinophils % (Manual) 2 % (0-7) 09/29/16 06:53 Platelet Estimate Normal (NORMAL) 09/29/16 06:53 Plt Clumps, EDTA Present 09/29/16 06:53 Hypochromasia (manual) Moderate 09/29/16 06:53 Anisocytosis (manual) Slight 09/29/16 06:53 Ovalocytes Slight 09/29/16 06:53 PT 10.6 SECONDS (9.6-11.2) 10/06/16 18:45 INR 1.02 (0.92-1.08) 10/06/16 18:45 APTT 29.3 SECONDS (23.3-32.5) 10/06/16 18:45 Sodium 139 mmol/l (132-148) 10/03/16 06:00 Potassium 4.3 MMOL/L (3.6-5.0) 10/03/16 06:00 Chloride 103 mmol/L (98-107) 10/03/16 06:00 Carbon Dioxide 29 mmol/L (22-30) 10/03/16 06:00 Anion Gap 11 (10-20) 10/03/16 06:00 BUN 24 mg/dl (7-17) H 10/03/16 06:00 Creatinine 1.2 mg/dL (0.7-1.2) 10/03/16 06:00 Est GFR ( Amer) 53 10/03/16 06:00 Est GFR (Non-Af Amer) 44 10/03/16 06:00 Random Glucose 105 mg/dL (65-105) 10/03/16 06:00 Calcium 9.5 mg/dL (8.4-10.2) 10/03/16 06:00 Total Bilirubin 0.4 mg/dl (0.2-1.3) 09/29/16 06:53 AST 44 U/L (14-36) H D 09/29/16 06:53 ALT 32 U/L (9-52) 09/29/16 06:53 Alkaline Phosphatase 79 U/L (38-126) 09/29/16 06:53 Total Protein 6.7 G/DL (6.3-8.2) 09/29/16 06:53 Albumin 3.2 g/dL (3.5-5.0) L 09/29/16 06:53 Globulin 3.5 gm/dL (2.2-3.9) 09/29/16 06:53 Albumin/Globulin Ratio 0.9 (1.0-2.1) L 09/29/16 06:53 Vancomycin Trough 23.2 ug/mL (5.0-10.0) H 09/30/16 18:01 Random Vancomycin 16.4 ug/mL 10/01/16 12:15 - Hospital Course Hospital Course: 74 yo female with PMHx significant for CAD/PAD, HTN, hyperlipidemia, diverticulosis, COPD, GERD, history of Right THR with dislocation and closed reduction was admitted via [facility] for revision of right hip.She underwent revision of right hip .She was transferred to TCu for physical therapy and doing well. She would like to go home. ID was consulted and recommended 6 weeks of IV antibiotics. arrangements made for patient to get IV rocephin 2 G Iv daily for 5 more weeks and continue Zyvox Po 1.Revision of THR post op day 14 wound culture grew Beta Hemolytic Strep antibiotic switched to IV Rocephin and PO Zyvox per ID ASA 325 mg po daily 2. HTN (hypertension) BP controlled continue Norvasc 3. History of Anemia Continue Ferrous Sulfate 4. CAD (coronary artery disease) asymptomatic Continue Lipitor 5. COPD (chronic obstructive pulmonary disease) asymptomatic Duoneb q 4hrs prn for SOB 6.DVT prophylaxis received Lovenox will chnage to ASA daily 7. 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 MediHoney She is also aware of the moles (in the aforementioned areas) and she again does not want these addressed Discharge Exam - Head Exam Head Exam: ATRAUMATIC, NORMAL INSPECTION, NORMOCEPHALIC - Eye Exam Eye Exam: EOMI, Normal appearance, PERRL Pupil Exam: NORMAL ACCOMODATION - ENT Exam ENT Exam: Mucous Membranes Moist, Normal Exam - Neck Exam Neck exam: Full Rom, Normal Inspection - Respiratory Exam Respiratory Exam: Clear to PA & Lateral, NORMAL BREATHING PATTERN. absent: Rales, Rhonchi, Wheezes - Cardiovascular Exam Cardiovascular Exam: REGULAR RHYTHM, RRR, +S1, +S2. absent: JVD - GI/Abdominal Exam GI & Abdominal Exam: Normal Bowel Sounds, Soft. absent: Distended, Guarding, Rebound, Tenderness - Rectal Exam Rectal Exam: Deferred - Extremities Exam Extremities exam: normal capillary refill, normal inspection, pedal pulses present - Back Exam Back exam: NORMAL INSPECTION - Neurological Exam Neurological exam: Alert, CN II-XII Intact, Oriented x3, Reflexes Normal - Psychiatric Exam Psychiatric exam: Normal Affect, Normal Mood - Skin Skin Exam: Dry, Intact, Normal Color, Warm Discharge Plan - Follow Up Plan Condition: GOOD Disposition: HOME/ ROUTINE Patient education suggested?: Yes Referrals: Oscar Alex III, MD [Staff Provider] -
[2016-10-09] MEDS: cefTRIAXone 2 GM in Sodium Chloride 0.9% 100 ML IVPB SCH (16:29)
== END 2016-10-09 16:50 | disposition home or self-care (01) | DRG 561 ==
LOC: H.TCU 21:30
PROVIDERS: ADMIT Internal Medicine; ATTEND Internal Medicine
PROC: F07Z9FZ Gait Training/Functional Ambulation Treatment using Assistive, Adaptive, Supportive or Protective Equipment (ICD-10-PCS; principal; 2016-09-27)
PROC: F08Z4FZ Home Management Treatment using Assistive, Adaptive, Supportive or Protective Equipment (ICD-10-PCS; 2016-09-27)
PROC: F07L6FZ Therapeutic Exercise Treatment of Musculoskeletal System - Lower Back / Lower Extremity using Assistive, Adaptive, Supportive or Protective Equipment (ICD-10-PCS; 2016-09-28)
DX: Z47.1 Aftercare following joint replacement surgery (principal); L89.152 Pressure ulcer of sacral region, stage 2; J44.9 Chronic obstructive pulmonary disease, unspecified; D64.9 Anemia, unspecified; I10 Essential (primary) hypertension; Z96.641 Presence of right artificial hip joint; I25.10 Atherosclerotic heart disease of native coronary artery without angina pectoris; I73.9 Peripheral vascular disease, unspecified; E78.5 Hyperlipidemia, unspecified; K21.9 Gastro-esophageal reflux disease without esophagitis; K57.30 Diverticulosis of large intestine without perforation or abscess without bleeding; F43.20 Adjustment disorder, unspecified; M06.9 Rheumatoid arthritis, unspecified; F17.210 Nicotine dependence, cigarettes, uncomplicated; Z88.3 Allergy status to other anti-infective agents; Z88.2 Allergy status to sulfonamides; Z95.5 Presence of coronary angioplasty implant and graft

== ENCOUNTER 2016-10-08 13:34 | Day surgery (SDC) | payer MEDICARE ==
[2016-10-08 13:18] VITALS: RESP 18
[2016-10-08] MEDS ORDERED: Lidocaine 1% Inj (20ml) ONE (14:11)
--- NOTE | 2016-10-08 14:36 | CP.SDSHP ---
Same Day Surgery H & P - History Proposed Procedure: picc placement Pre-Op Diagnosis: poor venous access - Allergies Allergies: Allergies bacitracin Allergy (Unknown, Verified 10/08/16 13:24) ANAPHYLAXIS neomycin Allergy (Unknown, Verified 10/08/16 13:24) ANAPHYLAXIS polymyxin B Allergy (Unknown, Verified 10/08/16 13:24) ANAPHYLAXIS Sulfa (Sulfonamide Antibiotics) Allergy (Unknown, Verified 10/08/16 13:24) ANAPHYLAXIS - Physical Exam Vital Signs: Vital Signs 10/08/16 10/08/16 12:33 13:00 Temperature 98.4 F Pulse Rate 71 71 Respiratory 18 Rate Blood Pressure 123/51 L O2 Sat by Pulse 99 Oximetry Mental Status: Alert & Oriented x3 Neuro: WNL Lungs: WNL - Impression Impression: Pt referred for pICC. Plan picc placement. Pt. Evaluated Today:Candidate for Anesthesia & Procedure: No Short Stay Discharge - Short Stay Discharge Admitting Diagnosis/Reason for Visit: IV TREATMENT Disposition: REHAB FACILITY/REHAB UNIT
--- NOTE | 2016-10-08 14:37 | PCM.SURG1 ---
Surgeon's Initial Post Op Note - Surgeon's Notes Surgeon: Tc Gonzales MD Balance Staff Staker: NONE Type of Anesthesia: Local Pre-Operative Diagnosis: Poor venous access Operative Findings: Patent right brachial vein Post-Operative Diagnosis: Poor venous access Operation Performed: Single lumen picc placement, 33 cm, via the right brachial vein. Tip in SVC. Specimen/Specimens Removed: NONE Estimated Blood Loss: EBL {In ML}: 2 Blood Products Given: N/A Drains Used: No Drains Post-Op Condition: Good Date of Surgery/Procedure: 10/08/16 Time of Surgery/Procedure: 14:30
[2016-10-08 14:58] VITALS: BP 123/63; PULSE 75; TEMP 97.8; O2SAT 100
[2016-10-10 09:15] VITALS: BMI 22.9
--- NOTE | 2016-10-10 11:29 | VASCULAR ---
PROCEDURE: Date of procedure: 10/08/2016 Procedure: 1. Placement of a right arm PICC with ultrasound and fluoroscopic guidance, CPT 62425 2. PICC tip confirmation with spot radiograph and is in the superior vena cava Medications: 3cc 1 percent lidocaine Total Fluoro time: 3.6 seconds Radiation: 0.32 mGy EBL: 2 cc HISTORY: Infection requiring long-term IV antibiotics TECHNIQUE: Following informed consent and procedure time-out, the patient was placed supine on the interventional table and the right arm prepped and draped in the usual sterile fashion. Ultrasound showed a patent and compressible right basilic vein. After the skin was anesthetized with lidocaine, the basilic vein was accessed with micro micropuncture technique using ultrasound guidance. A guidewire was then advanced under fluoroscopic guidance into the superior vena cava. An image documenting ultrasound guidance for vascular access was permanently saved. The length of the single-lumen 4 Albanian PICC was trimmed to 33centimeters and advanced through a peel-away sheath. The PICC was position with tip of PICC confirm a spot radiograph the superior vena cava. The PICC was secured to the patient's skin. The PICC was flushed. A biopatch and sterile dressing was applied. IMPRESSION: Placement of a single-lumen 4 Albanian PICC trimmed to 33 centimeters via right basilic vein. The tip of the PICC is confirmed with spot radiograph and is in the superior vena cava.
== END 2016-10-08 14:50 ==
LOC: H.OPSURG 13:34
PROVIDERS: ATTEND Family Medicine
DX: Z96.641 Presence of right artificial hip joint (principal); K57.90 Diverticulosis of intestine, part unspecified, without perforation or abscess without bleeding; L89.152 Pressure ulcer of sacral region, stage 2; E78.5 Hyperlipidemia, unspecified; I10 Essential (primary) hypertension; I25.10 Atherosclerotic heart disease of native coronary artery without angina pectoris; I73.9 Peripheral vascular disease, unspecified; K21.9 Gastro-esophageal reflux disease without esophagitis; J44.9 Chronic obstructive pulmonary disease, unspecified
CPT/HCPCS: 36569; 76937; 77001; A4310; C1751

== ENCOUNTER 2018-07-13 10:15 | Day surgery (SDC) | payer MEDICARE ==
[2018-07-13] MEDS ORDERED: Tetracaine 0.5% Ophth 2 ML BOTTLE ONE (10:34)
[2018-07-13] MEDS ORDERED: EPINEPHrine 1 mg/ml (1:1000) Inj ONE (10:34)
[2018-07-13] MEDS ORDERED: Lidocaine 1% 20 MG/2 ML PF AMP ONE (10:34)
[2018-07-13] MEDS ORDERED: Maxitrol Opht Susp ONE (10:34)
[2018-07-13] MEDS ORDERED: Pilocarpine 1% Opht Soln ONE (10:35)
[2018-07-13] MEDS ORDERED: STERILE IRRIGATING SOLUTION 45 ML IR ONE (10:35)
[2018-07-13] MEDS ORDERED: CA CL/K CL/NA CL 500 ML IR ONE (10:35)
[2018-07-13] MEDS ORDERED: Chondroitin/Hyaluronate Opth Syringe KIT (0.55 ml-0.5 ml) IO ONE (10:35)
[2018-07-13] MEDS ORDERED: Povidone Iodine 5% Opht SOLUTION ONE (10:36)
[2018-07-13] MEDS ORDERED: Carbachol 0.01% IO ONE (10:36)
[2018-07-13 12:47] VITALS: BMI 21.9
[2018-07-13] MEDS ORDERED: Flurbiprofen 0.03% Opht SOLN OU SCH (13:00)
[2018-07-13] MEDS ORDERED: Phenylephrine 2.5% Opht Soln OS ONE (13:00)
[2018-07-13] MEDS ORDERED: Tropicamide 1% Opht 150 DROP/15 ML OS ONE (13:00)
[2018-07-13] MEDS ORDERED: Midazolam 2 MG/2 ML VIAL ONE (14:25)
[2018-07-13] MEDS ORDERED: BSS 15 ML SOL IR ONE (14:29)
[2018-07-13] MEDS ORDERED: Lactated Ringer's 1,000 ML IV ONE (14:30)
[2018-07-13 15:32] VITALS: PULSE 86; TEMP 98.2
[2018-07-13 16:01] VITALS: BP 128/97; RESP 18; O2SAT 96
--- NOTE | 2018-07-14 12:48 | OP ---
PROCEDURE DATE: 07/13/2018 SURGEON: JOHANNA SUMMERS MD ANESTHESIOLOGIST: CRISTINA GRIGSBY MD ANESTHESIA: LOCAL / IV SEDATION PREOPERATIVE DIAGNOSIS: CATARACT LEFT EYE. POSTOPERATIVE DIAGNOSIS: CATARACT LEFT EYE. OPERATION: CLEAR CORNEAL PHACOEMULSIFICATION WITH LENS IMPLANT LEFT EYE. PREPARATION AND PROCEDURE: After the patient was prepped and draped in the usual manner for sterile ophthalmic surgery, local IV sedation was administered; eye seals were applied to the upper and lower lid margins and an adult wire lid speculum was placed within the lids. Under microsurgical control, a two-step clear corneal incision was made into the anterior chamber. The initial incision was perpendicular to the corneal plane. The second incision with the keratome was placed at a 45-degree angle to the first incision. One cc of one percent Xylocaine MPF was instilled into the anterior chamber to achieve proper intraocular anesthesia. At this time, the Viscoelastic was injected into the anterior chamber for protection of the endothelium and for maintenance of the chamber depth. A 360-degree continuous curvilinear capsulorrhexis was performed using a pre-bent 25-gauge needle. Hydrodissection and hydrodelineation were performed using a Espinosa cannula and balanced salt solution. Utilizing the tip of the Espinosa cannula, the nucleus was rotated freely within the capsular bag. A standard one-handed phacoemulsification was utilized at this time for sculpting and rotating of the nucleus. The nucleus was fragmented in its entirety and aspirated without any consequence. A standard I&A was carried out for the residual cortical material. No residual material was noted within the capsular bag. The posterior capsule was noted to be clear. Additional Viscoelastic was injected into the capsular bag in preparation for lens implantation. After this has been satisfactorily achieved the intraocular lens injected through the corneal incision into the capsular bag. The intraocular lens was manipulated until it was properly oriented and the Viscoelastic was evacuated from the capsular bag and anterior chamber. The anterior chamber was reformed with balanced salt solution. The corneal incision was irrigated with BSS. The intraocular pressure was found to be within normal limits. This terminated the procedure. The speculum and lid drapes were removed. TobraDex ophthalmic suspension and Pilocarpine 1% drops one drop was applied to the eye. POSTOPERATIVE CONDITION: The patient was brought to the Post anesthesia Recovery area with stable vital signs. DJOHANNA CHAIDEZ MD
== END 2018-07-13 16:30 | disposition home or self-care (01) ==
LOC: H.OPSURG 10:15
PROVIDERS: ATTEND Ophthalmology
DX: H25.812 Combined forms of age-related cataract, left eye (principal); I25.10 Atherosclerotic heart disease of native coronary artery without angina pectoris; E78.5 Hyperlipidemia, unspecified; I10 Essential (primary) hypertension
CPT/HCPCS: 66984; J0171; J2250; J3010; J7120

== ENCOUNTER 2018-08-03 08:40 | Day surgery (SDC) | payer MEDICARE ==
[2018-07-27 09:22] VITALS: BMI 22.8
[2018-08-03] MEDS ORDERED: Maxitrol Opht Susp ONE (08:56)
[2018-08-03] MEDS ORDERED: EPINEPHrine 1 mg/ml (1:1000) Inj ONE (08:57)
[2018-08-03] MEDS ORDERED: Tetracaine 0.5% Ophth 2 ML BOTTLE ONE (08:57)
[2018-08-03] MEDS ORDERED: Chondroitin/Hyaluronate Opth Syringe KIT (0.55 ml-0.5 ml) IO ONE ×2 (08:58→12:50)
[2018-08-03] MEDS ORDERED: Pilocarpine 1% Opht Soln ONE (08:58)
[2018-08-03] MEDS ORDERED: Lidocaine 1% 20 MG/2 ML PF AMP ONE (08:58)
[2018-08-03] MEDS ORDERED: STERILE IRRIGATING SOLUTION 45 ML IR ONE (08:58)
[2018-08-03] MEDS ORDERED: CA CL/K CL/NA CL 500 ML IR ONE (08:58)
[2018-08-03] MEDS ORDERED: Carbachol 0.01% IO ONE ×2 (08:59→12:50)
[2018-08-03] MEDS ORDERED: Povidone Iodine 5% Opht SOLUTION ONE (08:59)
[2018-08-03] MEDS ORDERED: Lactated Ringer's 1,000 ML IV ONE (09:37)
[2018-08-03] MEDS ORDERED: Phenylephrine 2.5% Opht Soln OD SCH (09:45)
[2018-08-03] MEDS ORDERED: Flurbiprofen 0.03% Opht SOLN OD SCH (09:45)
[2018-08-03] MEDS ORDERED: Tropicamide 1% Opht 150 DROP/15 ML OD SCH (09:45)
[2018-08-03] MEDS ORDERED: Phenylephrine 2.5% Opht Soln OD ONE (10:00)
[2018-08-03] MEDS ORDERED: Tropicamide 1% Opht 150 DROP/15 ML OD ONE (10:00)
[2018-08-03] MEDS ORDERED: Flurbiprofen 0.03% Opht SOLN OD ONE (10:00)
[2018-08-03] MEDS ORDERED: Lidocaine 2% MPF (5 ml) Inj INJ ONE (12:50)
[2018-08-03] MEDS ORDERED: Povidone Iodine 5% Opht SOLUTION OU ONE (12:50)
[2018-08-03] MEDS ORDERED: BSS 15 ML SOL IR ONE (12:50)
[2018-08-03] MEDS ORDERED: Pilocarpine 1% Opht Soln OD ONE (12:50)
[2018-08-03] MEDS ORDERED: Neomycin/Polymyxin B Sulfates Sol for Irrigation 1 ml Amp IR ONE (12:50)
[2018-08-03] MEDS ORDERED: Tetracaine 0.5% Ophth 2 ML BOTTLE OU ONE (12:50)
[2018-08-03] MEDS ORDERED: EPINEPHrine 1 mg/ml (1:1000) Inj IV ONE (12:50)
[2018-08-03 16:42] VITALS: RESP 18
[2018-08-03 17:10] VITALS: BP 116/68; PULSE 86; TEMP 98; O2SAT 97
--- NOTE | 2018-08-04 08:03 | OP ---
PROCEDURE DATE: 08/03/2018 SURGEON: JOHANNA SUMMERS MD ANESTHESIOLOGIST: YE MEDINA MD ANESTHESIA: LOCAL / IV SEDATION PREOPERATIVE DIAGNOSIS: CATARACT RIGHT EYE. POSTOPERATIVE DIAGNOSIS: CATARACT RIGHT EYE. OPERATION: CLEAR CORNEAL PHACOEMULSIFICATION WITH LENS IMPLANT RIGHT EYE. PREPARATION AND PROCEDURE: After the patient was prepped and draped in the usual manner for sterile ophthalmic surgery, local IV sedation was administered; eye seals were applied to the upper and lower lid margins and an adult wire lid speculum was placed within the lids. Under microsurgical control, a two-step clear corneal incision was made into the anterior chamber. The initial incision was perpendicular to the corneal plane. The second incision with the keratome was placed at a 45-degree angle to the first incision. One cc of one percent Xylocaine MPF was instilled into the anterior chamber to achieve proper intraocular anesthesia. At this time, the Viscoelastic was injected into the anterior chamber for protection of the endothelium and for maintenance of the chamber depth. A 360-degree continuous curvilinear capsulorrhexis was performed using a pre-bent 25-gauge needle. Hydrodissection and hydrodelineation were performed using a Espinosa cannula and balanced salt solution. Utilizing the tip of the Espinosa cannula, the nucleus was rotated freely within the capsular bag. A standard one-handed phacoemulsification was utilized at this time for sculpting and rotating of the nucleus. The nucleus was fragmented in its entirety and aspirated without any consequence. A standard I&A was carried out for the residual cortical material. No residual material was noted within the capsular bag. The posterior capsule was noted to be clear. Additional Viscoelastic was injected into the capsular bag in preparation for lens implantation. After this has been satisfactorily achieved the intraocular lens injected through the corneal incision into the capsular bag. The intraocular lens was manipulated until it was properly oriented and the Viscoelastic was evacuated from the capsular bag and anterior chamber. The anterior chamber was reformed with balanced salt solution. The corneal incision was irrigated with BSS. The intraocular pressure was found to be within normal limits. This terminated the procedure. The speculum and lid drapes were removed. TobraDex ophthalmic suspension and Pilocarpine 1% drops one drop was applied to the eye. POSTOPERATIVE CONDITION: The patient was brought to the Post anesthesia Recovery area with stable vital signs. DJOHANNA CHAIDEZ MDD
== END 2018-08-03 14:35 | disposition home or self-care (01) ==
LOC: H.OPSURG 08:40
PROVIDERS: ATTEND Ophthalmology
DX: H25.11 Age-related nuclear cataract, right eye (principal); E78.5 Hyperlipidemia, unspecified; I10 Essential (primary) hypertension
CPT/HCPCS: 66984; J0171; J2250; J3010; J7120; V2632